=== PATIENT | female | born 1975 | race Caucasian/White ===

== ENCOUNTER → 2023-11-09 | Outpatient (CLI) | payer OTHER, SELFPAY ==
[2023-11-09 12:58] LABS: Erythrocyte Sedimentation Rate 60 mm/hr (0-30)
[2023-11-09 13:00] LABS: Basophil# 0.06 X10^3/uL; Basophil% 0.4 % (0-1); Eosinophil# 0.05 X10^3/uL; Eosinophils% 0.3 % (0-5); Hematocrit 40.7 % (37-47); Hemoglobin 11.9 g/dL (12.0-15.0); Lymphocyte % 7.5 % (19-41); Mean Corp Hgb Conc 29.2 g/dL (32-36); Mean Corpuscular Hgb 22.7 pg (27.0-32.0); Mean Corpuscular Volume 77.7 fL (81-99); Monocyte# 0.57 X10^3/uL; Monocyte% 3.6 % (0-10); NRBC Flagged by Analyzer 0 % (0-5); Neutrophil # 14.02 X10^3/uL (2.7-7.7); Neutrophil % 87.8 % (47-70); Platelet Count 497 K/mm3 (150-450); RBC Distribution Width CV 16.4 % (11.6-14.6); Red Blood Count 5.24 M/mm3 (4.2-5.4)
[2023-11-09 13:26] LABS: AST(SGOT) 15 U/L (15-37); Alanine Aminotransfer ALT/SGPT 21 U/L (13-56); Albumin, Serum 3.9 g/dL (3.2-5.0); Alkaline Phosphatase 69 U/L (45-117); Anion Gap 7 (5-15); BUN 11 mg/dL (7-18); BUN/Creat Ratio 16.6 RATIO (10-20); Calcium,Total 9.5 mg/dL (8.5-10.1); Chloride 105 mmol/L (98-107); Cholesterol 197 mg/dL (200); Creatinine, Serum 0.66 mg/dL (0.55-1.02); EST Glomerular Filtration Rate 100 mL/min (>60); Est Glom Filt Rate - Afr Amer 121 mL/min (>60); Estradiol < 11.0 pg/mL; Glucose 98 mg/dL (74-106); High Density Lipoprotein 92 mg/dL; Potassium 4.2 mmol/L (3.5-5.1); Protein, Total 7.9 g/dL (6.4-8.2); Sodium Level 140 mmol/L (136-145); Triglycerides 116 mg/dL; Very Low Density Lipoprotein 23 mg/dL (5-40)
[2023-11-09 13:43] LABS: Progesterone Level < 0.21 ng/mL (See Comment); Vitamin B12 626 pg/mL (211-911); Vitamin D,25 Hydroxy 32.4 ng/mL
[2023-11-09 14:08] LABS: Hemoglobin A1c 5.8 % (3.8-5.6)
[2023-11-10 04:07] LABS: DHEA Sulfate 7.7 ug/dL (41.2-243.7)
== END | disposition home or self-care (01) ==
LOC: LABSPEC 12:31
PROVIDERS: Referring Provider Nurse Practitioner Family; Visit Provider Nurse Practitioner Family
DX: F41.9 Anxiety disorder, unspecified (principal); M06.849 Other specified rheumatoid arthritis, unspecified hand; A69.20 Lyme disease, unspecified; B60.09 Other babesiosis; R53.82 Chronic fatigue, unspecified; G89.4 Chronic pain syndrome; E28.9 Ovarian dysfunction, unspecified; Z13.1 Encounter for screening for diabetes mellitus; Z13.6 Encounter for screening for cardiovascular disorders
CPT/HCPCS: 80053; 80061; 82306; 82607; 82627; 82670; 83036; 84144; 84403; 85025; 85652; 86140; 82626

== ENCOUNTER → 2025-05-02 | Outpatient (CLI) | payer OTHER, SELFPAY ==
[2025-05-02 18:05] LABS: Hematocrit 39.3 % (37-47); Hemoglobin 11.5 g/dL (12.0-15.0); Immature Granulocytes Count 0.080 X10^3/uL (0.0-0.0); Mean Corp Hgb Conc 29.3 g/dL (32-36); Mean Corpuscular Volume 72.9 fL (81-99); Mean Platelet Vol. 9.2 fl (6.2-12.0); NRBC Flagged by Analyzer 0 % (0-5); Platelet Count 538 K/mm3 (150-450); RBC Distribution Width CV 18.8 % (11.6-14.6); RBC Distribution Width SD 48.3 fl (35.1-43.9); Red Blood Count 5.39 M/mm3 (4.2-5.4); White Blood Count 10.7 K/mm3 (4.4-11.0)
[2025-05-02 19:03] LABS: AST(SGOT) 20 U/L (<=31); Alanine Aminotransfer ALT/SGPT 19 U/L (<=34); Albumin, Serum 4.4 g/dL (3.5-5.0); Alkaline Phosphatase 78 U/L (35-104); Anion Gap 15 (5-15); BUN 12 mg/dL (4-19); BUN/Creat Ratio 19.7 RATIO (10-20); CORTISOL PM 1.47 ug/dL (2.68-10.50); Calcium,Total 10.1 mg/dL (7.6-11.0); Carbon Dioxide 24.0 mmol/L (21.0-32.0); Chloride 101 mmol/L (98-108); Cholesterol 191 mg/dL (<=200); Globulin 4.4 g/dL (2.2-4.2); Glucose 97 mg/dL (70-99); Low Density Lipoprotein Calc. 86 mg/dL; Potassium 4.5 mmol/L (3.3-5.1); Triglycerides 147 mg/dL; Very Low Density Lipoprotein 29 mg/dL (5-40); cholesterol:hdl ratio screen 2.52
[2025-05-02 19:16] LABS: Vitamin D,25 Hydroxy 46.6 ng/mL (30-100)
--- OUTSIDE RECORDS SUMMARY | 2025-05-02 23:17 | XMS RPT_ITS | CCD ---
Author Organization [facility] Care Team Providers Care Glass Block Installer Name Role Phone Juli Beach Unavailable Sheeba Rojas Unavailable Sadie Santana Unavailable Unavailable JULI BEACH Primary Care Unavailable ALMAZ GREGORIO Attending UnavailJULI Rosas Primary Care Unavailable ADRIANA ALEXANDER Attending Unavailable Juli Beach Primary Care Provider Sheeba Rojas Unavailable [phone] Sadie Santana Unavailable Unavailable Sadie Santana Unavailable Unavailable Cheryle BUI, Terri Leung Referring Unavailsae Lobato NP, Terri Leung Attending UnavailSantos Perez DO Unavailable Unavailable Santos Malloy Attending Unavailable Solomon Mcgee Referring Unavailable Santos Malloy Attending Unavailable Solomon Mcgee Referring Unavailable Santos Malloy Attending Unavailable Solomon Mcgee Referring Unavailable Santos Malloy Attending Unavailable Solomon Mcgee Referring Unavailable Santos Malloy Attending Unavailable Jose Alfredo Crouch Attending Unavailable Santos Malloy Referring Unavailable CHERYLE, TERRI Primary Care Unavailable SOLO ABEBE Referring Unavailable SOLO ABEBE Attending Unavailable SOLO ABEBE Attending Unavailable LILLY LOBATOISTA Primary Care Unavailable SOLO ABEBE Referring Unavailable SHEEBA ROJAS Referring Unavailabl SHEEBA Arcos Attending Unavailsae LOBATO TERRI Primary Care Unavailable Allergies Allergy Classification Reported Allergen(s) Allergy Type Date of Onset Reaction(s) Facility (8 sources) HYDROmorphone; Translations: [HYDROMORPHONE] Drug Allergy 07-31-2015 [facility] Medications Current Medications Medication Drug Class(es) Dates Sig (Normalized) Sig (Original) amoxicillin 875 mg oral tablet (5 sources) Penicillin-class Antibacterial Start: 10-06-2018 take 1 tablet by mouth twice daily amoxicillin (AMOXIL) 875 MG tablet Take 875 mg by mouth 2 (two) times a day . 1 10/06/2018 Active ascorbic acid 1000 mg oral tablet (6 sources) take 1 tablet by mouth once daily ascorbic acid, vitamin C, (vitamin C) 1000 MG tablet Take 1,000 mg by mouth daily. 0 Active ASPIRIN/ACETAMINOP HEN/CAFFEINE (EXCEDRIN EXTRA STRENGTH ORAL) (6 sources) ASPIRIN/ACETAMIN O PHEN/CAFFEINE (EXCEDRIN EXTRA STRENGTH ORAL) Take by mouth every 8 (eight) hours as needed. 0 Active ASPIRIN/ACETAMIN OPHEN/CAFFEINE (EXCEDRIN EXTRA STRENGTH ORAL) Take by mouth every 8 (eight) hours as needed. Active cholecalciferol 5000 unt oral tablet (6 sources) Vitamin D cholecalciferol, vitamin D3, (VITAMIN D3) 5,000 unit Tab tablet Take by mouth daily. 0 Active coconut oil (6 sources) take 3000 mg by mouth once daily COCONUT OIL ORAL Indications: Supplement Take 3,000 mg by mouth daily Reasons: Supplement. 0 Active take 3000 mg by mouth once daily COCONUT OIL ORAL Indications: Supplement Take 3,000 mg by mouth daily Reasons: Supplement. Active diazePAM 10 mg oral tablet (6 sources) Benzodiazepine take 1 tablet by mouth twice daily as needed for anxiety diazePAM (VALIUM) 10 MG tablet Take 10 mg by mouth 2 (two) times a day as needed for anxiety. 0 Active escitalopram 10 mg oral tablet (6 sources) Serotonin Reuptake Inhibitor Start: 2014 escitalopram oxalate (LEXAPRO) 10 MG tablet Indications: anxiety with depression 10 mg nightly ReasonsAnxiety with Depression 0 06/20/2015 Active fluticasone propionate 0.05 mg/actuat metered dose nasal spray (3 sources) Corticosteroid Start: 2018 End: 2019 take 2 spray(s) nasal route once daily fluticasone (FLONASE) 50 mcg/actuation nasal spray Instill 2 (two) sprays into each nostril daily . 16 g 0 10/22/2018 Active hydroxychloroquine sulfate 200 mg oral tablet (6 sources) Antirheumatic Agent hydroxychlor oquine (PLAQUENIL) 200 mg tablet Take by mouth 2 (two) times a day. 0 Active meloxicam 15 mg oral tablet (1 source) Nonsteroidal Anti-inflammatory Drug Start: 2023 take 1 tablet by mouth once daily meloxicam 15 mg tablet take 1 tablet by oral route every day 15 MG - Active oseltamivir 75 mg oral capsule (3 sources) Neuraminidase Inhibitor Start: 2018 End: 2018 take 1 capsule by mouth twice daily oseltamivir (TAMIFLU) 75 MG capsule Indications: Influenza A Take 1 (one) capsule (75 mg total) by mouth 2 (two) times a day for 5 days . 10 capsule 0 10/20/2018 10/25/2018 Active predniSONE 2 mg delayed release oral tablet (6 sources) Corticosteroid take 3 mg by mouth twice daily in the morning, then take 2 mg by mouth in the evening, then take 2 mg by mouth once daily PREDNISONE ORAL Indications: 2mg daily Take by mouth 2 (two) times a day Takes 3 mg in am, 2 mg in pm Reasons: 2mg daily. 0 Active take 3 mg by mouth t wice daily in the morning, then take 2 mg by mouth in the evening, then take 2 mg by mouth once daily PREDNISONE ORAL Indications: 2mg daily T janet by mouth 2 (two) times a day Takes 3 mg in am, 2 mg in pm Reasons: 2mg daily. 0 Active take 3 mg by mouth t wice daily in the morning, then take 2 mg by mouth in the evening PREDNISONE ORAL Take by mouth 2 (two) ti mes a day Takes 3 mg in am, 2 mg in pm . Active rizatriptan 10 mg disintegrating oral tablet (6 sources) Serotonin-1b and Serotonin-1d Receptor Agonist Start: 06-05-2015 rizatriptan (MAXALT-INSTRUMENT MAN) 10 MG disintegrating tablet as needed for migraine 0 06/05/2015 Active UNABLE TO FIND (6 sources) UNABLE TO FIND M ed Name: bio fibrin 3 capsules daily . 0 Active UNABLE TO FIND M ed Name: bio fibrin 3 capsules daily . Active Completed/Discontinued Medications Medication Drug Class(es) Dates Sig (Normalized) Sig (Original) Sodium Chloride (1 source) Start: 10-22-2018 End: 10-22-2018 sodium chloride (PF) (NS) flush 5 mL Problems Active Problems Problem Classification Problem Date Documented Da te Episodic/Chronic Influenza (3 sources) Influenza due to Influenza A virus; Translations: [Influenza due to other identified influenza virus with other respiratory manifestations] Onset: 10-20-2018 Episodic Malaise and fatigue (1 source) Chronic fatigue, unspecified; Translations: [Chronic fatigue, unspecified] Onset: 11-09-2023 Chronic Nonspecific chest pain (4 sources) Chest wall pain; Translations: [Chest pain, unspecified] Onset: 10-22-2018 Episodic Osteoarthritis (2 sources) Unilateral primary osteoarthritis, right knee Onset: 08-04-2024 08-04-2024 Chronic Other and unspecified benign neoplasm (3 sources) Intraductal papilloma of right breast; Translations: [Intraductal papilloma of right breast] Onset: 08-23-2015 08-23-2015 Other circulatory disease (2 sources) Elevated blood pressure; Translations: [Elevated blood pressure reading] Episodic Other circulatory disease (2 sources) Elevated blood-pressure reading, without diagnosis of hypertension; Translations: [Elevated blood-pressure reading, without diagnosis of hypertension] Onset: 10-22-2018 Episodic Other infections; including parasitic (1 source) Lyme disease, unspecified; Translations: [Lyme disease, unspecified] Onset: 11-09-2023 Episodic Other nervous system disorders (1 source) Chronic pain syndrome; Translations: [Chronic pain syndrome] Onset: 11-09-2023 Chronic Other non-traumatic joint disorders (2 sources) Pain in right knee Episodic Other screening for suspected conditions (not mental disorders or infectious disease) (3 sources) Mammographic mass of right breast; Translations: [Mass of right breast on mammogram] Onset: 07-05-2015 08-02-2015 Residual codes; unclassified (1 source) Influenza-like symptoms; Translations: [Influenza-like symptoms] Episodic Residual codes; unclassified (2 sources) Other general symptoms and signs; Translations: [Other general symptoms and signs] Onset: 10-20-2018 Episodic Rheumatoid arthritis and related disease (1 source) Other specified rheumatoid arthritis, unspecified hand; Translations: [Other specified rheumatoid arthritis, unspecified hand] Onset: 11-09-2023 Chronic Unclassified (5 sources) Breast neoplasm screening status; Translations: [Encounter for screening for diabetes mellitus] Onset: 11-09-2023 Episodic Unclassified (3 sources) Unspecified lump in the right breast, unspecified quadrant; Translations: [Mass of right breast on mammogram] Onset: 07-05-2015 08-02-2015 Unclassified (2 sources) Patient encounter status; Translations: [Screening breast examination] Unclassified (1 source) Other babesiosis; 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] Onset: 11-09-2023 Past or Other Problems Problem Classification Problem Date Documented Da te Episodic/Chronic Benign neoplasm of uterus (6 sources) Uterine leiomyoma; Translations: [Uterine fibroid] Onset: 09-23-2016 09-23-2016 Episodic Nonmalignant breast conditions (6 sources) Bloody nipple discharge; Translations: [Bloody discharge from right nipple] Onset: 07-05-2015 Resolved: 08-23-2015 08-23-2015 Episodic Other and unspecified benign neoplasm (3 sources) Benign neoplasm of right breast; Translations: [Intraductal papilloma of right breast] Onset: 08-23-2015 08-23-2015 Episodic Unclassified (6 sources) History of total hysterectomy with bilateral salpingo-oophorecto my; Translations: [S/P KEENA-BSO (total abdominal hysterectomy and bilateral salpingo-oophorecto my)] Onset: 09-23-2016 09-23-2016 Episodic Results Test Name Value Interpretation Reference Range Facility MM SCREENING DEANGELO BILATERALo n 04-20-2025 MM SCREENING DEANGELO BILATERAL EXAMINATION: BILATERAL DIGITAL SCREENING MAMMOGRAM WITH TOMOSYNTHESIS INDICATION: Annual screening exam. COMPARISON: Studies dating back to 2014 TECHNIQUE: Standard mammographic views, 2D and 3D. Computer-aided detection was utilized in the interpretation of this exam. FINDINGS: The breasts are heterogeneously dense, which may obscure small masses. Stable postsurgical changes in the anterior right breast from a prior benign surgical excision. No suspicious masses, calcifications, or other abnormalities in either breast. No significant interval change. IMPRESSION: No mammographic evidence of malignancy. BIRADS: BIRADS - CATEGORY 2 Benign, no evidence of malignancy. Normal interval follow-up is recommended in 12 months. OVERALL ASSESSMENT - BENIGN A letter of notification will be sent to the patient regarding the results. [facility], along with the [employer] and the [employer] recommend annual screening mammograms for women age 40 and older. Workstation ID: [id number] Dictated by: JERRY KEBEDE on ThuApr 20, 2025 9:40:30 AM EDT Transcribed by: JERRY KEBEDE on ThuApr 20, 2025 9:40:30 AM EDT Finalized by: JERRY KEBEDE on ThuApr 20, 2025 9:40:30 AM EDT Normal [facility] BMP FASTINGon 03-28-2025 Anion gap [Moles/Vol] 11 mmol/L Normal [facility] Comment on above: Performed By: #### B MPF #### Testing performed at [address] [address] Calcium [Mass/Vol] 9.8 mg/dL Normal 8.4-10.2 [facility] Comment on above: Performed By: #### B MPF #### Testing performed at [address] [address] Chloride [Moles/Vol] 101 mmol/L Normal 98-107 [facility] Comment on above: Result Comment: Allen smith note: Triglyceride levels of 600mg/dL or higher may positively bias chloride results by approximately 2.1 mmol Performed By: #### B MPF #### Testing performed at [address] [address] CO2 [Moles/Vol] 27 mmol/L Normal 22-30 [facility] Comment on above: Performed By: #### B MPF #### Testing performed at [address] [address] Creatinine [Mass/Vol] 0.58 mg/dL Low 0.70-1.20 [facility] Comment on above: Performed By: #### B MPF #### Testing performed at [address] [address] GFR Information Average GFR for 50-5 9 years old = 93. Normal [facility] Comment on above: Result Comment: Mottler Operator rodrick Kidney disease, GFR = <60. Kidney failure, GFR = <15. The GFR estimate is not adjusted for extreme body surface area or acute process, nor has it been validated for women or ethnic groups other than and . MDRD Equation Performed By: #### B MPF #### Testing performed at [address] [address] GFR/1.73 sq M.predicted MDRD (S/P/Bld) [Vol rate/Area] 117 mL/min/{1.73_m2} Normal [facility] Comment on above: Performed By: #### B MPF #### Testing performed at [address] [address] Glucose [Mass/Vol] 117 mg/dL High 70-100 [facility] Comment on above: Result Comment: NORMAL <100 mg/dL PREDIABETES 101-126 mg/dL DIABETES 126 mg/dL or higher Performed By: #### B MPF #### Testing performed at [address] [address] Potassium [Moles/Vol] 4.1 mmol/L Normal 3.5-5.1 [facility] Comment on above: Performed By: #### B MPF #### Testing performed at [address] [address] Sodium [Moles/Vol] 139 mmol/L Normal 137-145 [facility] Comment on above: Performed By: #### B MPF #### Testing performed at [address] [address] Urea nitrogen [Mass/Vol] 12 mg/dL Normal 7-20 [facility] Comment on above: Performed By: #### B MPF #### Testing performed at [address] [address] DHEA Sulfateon 11-10-2023 DHEA SULFATE 7.7 ug/dL Low 41.2-243.7 [facility] Comment on above: Order Comment: N Result Comment: Perf ormed at: - [facility] [address] [id number] Cut To Length Operator: Anthony Bragg PhD, Phone: [phone] Performed By: #### L 501.9985, L100.0100, L503.0105, L3300.1500, L506.1000, L501.6710, L500.4050, L101.9900, L500.4100, L509.4001, L3300.1750, L509.3000 #### [facility] [address] [place], [address] Absolute lymphocyte countOrd ered By: Terri Lobato on 11-09-2023 Lymphocytes Auto (Unsp spec) [#/Vol] 1.20 10*3/uL 0.83-4.51 [facility] Automated lymphocyte count a s percentage of total leukocytesOrdered By: Terri Joseyolette on 11-09-2023 Lymphocytes/100 WBC Auto (Unsp spec) 7.5 % 19-41 [facility] Basophil percentageOrdered B y: Terri Lobato on 11-09-2023 Bilirubin [Mass/Vol] 0.30 mg/dL 0.20-1.00 [facility] Comment on above: For patients on eltr ombopag therapy, use of Dimension [place] TBIL is not recommended. Chloride [Moles/Vol] 105 mmol/L 98-107 [facility] Cholesterol [Mass/Vol] 197 mg/dL <200 [facility] Comment on above: <200 mg/dL Desirable 200-240 mg/dL Borderline >240 mg/dL High Risk Glucose [Mass/Vol] 98 mg/dL 74-[address] [facility] Neutrophils (Bld) [#/Vol] 14.0 10*3/uL 2.0-7.7 [facility] Potassium [Moles/Vol] 4.2 mmol/L 3.5-5.1 [facility] Protein [Mass/Vol] 7.9 g/dL 6.4-8.[address] [facility] Sodium [Moles/Vol] 140 mmol/L 136-[address] [facility] Testosterone [Mass/Vol] ng/dL [facility] Comment on above: CENTRAL 90% REFERENC E RANGES MALE AGE <50 197.44 - 669.58 ng/dL MALE AGE > or = 50 187.72 - 684.19 ng/dL FEMALE AGE <50 8.38 - 35.01 ng/dL FEMALE AGE > or = 50 <7.00 - 35.92 ng/dL Effective as of 03/12/21 Triglyceride [Mass/Vol] 116 mg/dL <199 [facility] Comment on above: The drugs N-Acetylcy steine and Metamizole may falsely depress this assay.Serum Triglycerides Reference Interval Normal <150 mg/dL Borderline high 150 - 199 mg/dL High 200 - 499 mg/dL Very High > or = 500 mg/dL CBC W/Diff, Automatedon 10-16 Absolute Lymph 1.20 X10 3/uL Normal 0.83-4.51 [facility] Comment on above: Performed By: #### L 501.9985, L100.0100, L503.0105, L3300.1500, L506.1000, L501.6710, L500.4050, L101.9900, L500.4100, L509.4001, L3300.1750, L509.3000 #### [facility] [address] [place], [address] Absolute Neut 14.0 X10 3/uL High 2.0-7.7 [facility] Comment on above: Performed By: #### L 501.9985, L100.0100, L503.0105, L3300.1500, L506.1000, L501.6710, L500.4050, L101.9900, L500.4100, L509.4001, L3300.1750, L509.3000 #### [facility] [address] [place], [address] IG% 0.400 Normal 0.0-0.9 [facility] Comment on above: Result Comment: IG% - Immature Granulocytes (promyelocytes, myelocytes and metamyelocytes) > 1% indicates that a LEFT SHIFT is Present. Performed By: #### L 501.9985, L100.0100, L503.0105, L3300.1500, L506.1000, L501.6710, L500.4050, L101.9900, L500.4100, L509.4001, L3300.1750, L509.3000 #### [facility] [address] [place], [address] Lymphocytes/100 WBC (Bld) 7.5 % Low 19-41 [facility] Comment on above: Performed By: #### L 501.9985, L100.0100, L503.0105, L3300.1500, L506.1000, L501.6710, L500.4050, L101.9900, L500.4100, L509.4001, L3300.1750, L509.3000 #### [facility] [address] [place], [address] Nucleated RBC (Bld) [#/Vol] 0 10*3/uL Normal 0-5 [facility] Comment on above: Performed By: #### L 501.9985, L100.0100, L503.0105, L3300.1500, L506.1000, L501.6710, L500.4050, L101.9900, L500.4100, L509.4001, L3300.1750, L509.3000 #### [facility] [address] [place], [address] RDW SD 46.0 fl High 35.1-43.9 [facility] Comment on above: Performed By: #### L 501.9985, L100.0100, L503.0105, L3300.1500, L506.1000, L501.6710, L500.4050, L101.9900, L500.4100, L509.4001, L3300.1750, L509.3000 #### [facility] [address] [place], [address] CBC W/Diff, AutomatedOrdered By: Terri Lobato on 11-09-2023 Basophils/100 WBC (Bld) 0.4 % 0-1 [facility] Comment on above: Performed By: #### L 501.9985, L100.0100, L503.0105, L3300.1500, L506.1000, L501.6710, L500.4050, L101.9900, L500.4100, L509.4001, L3300.1750, L509.3000 #### [facility] [address] [place], [place], [phone] (421) Eosinophils/100 WBC (Bld) 0.3 % 0-5 [facility] Comment on above: Performed By: #### L 501.9985, L100.0100, L503.0105, L3300.1500, L506.1000, L501.6710, L500.4050, L101.9900, L500.4100, L509.4001, L3300.1750, L509.3000 #### [facility] [address] [place], [address] (061) Erythrocyte distribution width (RBC) [Ratio] 16.4 % 11.6-14.6 [facility] Comment on above: Performed By: #### L 501.9985, L100.0100, L503.0105, L3300.1500, L506.1000, L501.6710, L500.4050, L101.9900, L500.4100, L509.4001, L3300.1750, L509.3000 #### [facility] [address] [place], [place], [id number] Hematocrit (Bld) [Volume fraction] 40.7 % 37-47 [facility] Comment on above: Performed By: #### L 501.9985, L100.0100, L503.0105, L3300.1500, L506.1000, L501.6710, L500.4050, L101.9900, L500.4100, L509.4001, L3300.1750, L509.3000 #### [facility] [address] [place], [address] (627) Hemoglobin (Bld) [Mass/Vol] 11.9 g/dL 12.0-15.0 [facility] Comment on above: Performed By: #### L 501.9985, L100.0100, L503.0105, L3300.1500, L506.1000, L501.6710, L500.4050, L101.9900, L500.4100, L509.4001, L3300.1750, L509.3000 #### [facility] [address] [place], [address] MCH (RBC) [Entitic mass] 22.7 pg 27.0-32.0 [facility] Comment on above: Performed By: #### L 501.9985, L100.0100, L503.0105, L3300.1500, L506.1000, L501.6710, L500.4050, L101.9900, L500.4100, L509.4001, L3300.1750, L509.3000 #### [facility] [address] [place], [address] MCHC (RBC) [Mass/Vol] 29.2 g/dL 32-36 [facility] Comment on above: Performed By: #### L 501.9985, L100.0100, L503.0105, L3300.1500, L506.1000, L501.6710, L500.4050, L101.9900, L500.4100, L509.4001, L3300.1750, L509.3000 #### [facility] [address] [place], [address] MCV (RBC) [Entitic vol] 77.7 fL 81-99 [facility] Comment on above: Performed By: #### L 501.9985, L100.0100, L503.0105, L3300.1500, L506.1000, L501.6710, L500.4050, L101.9900, L500.4100, L509.4001, L3300.1750, L509.3000 #### [facility] [address] [place], [address] Monocytes/100 WBC (Bld) 3.6 % 0-10 [facility] Comment on above: Performed By: #### L 501.9985, L100.0100, L503.0105, L3300.1500, L506.1000, L501.6710, L500.4050, L101.9900, L500.4100, L509.4001, L3300.1750, L509.3000 #### [facility] [address] [place], [address] Neutrophils/100 WBC (Bld) 87.8 % 47-70 [facility] Comment on above: Performed By: #### L 501.9985, L100.0100, L503.0105, L3300.1500, L506.1000, L501.6710, L500.4050, L101.9900, L500.4100, L509.4001, L3300.1750, L509.3000 #### [facility] [address] [place], [address] Platelet mean volume (Bld) [Entitic vol] 9.0 fL 6.2-12.0 [facility] Comment on above: Performed By: #### L 501.9985, L100.0100, L503.0105, L3300.1500, L506.1000, L501.6710, L500.4050, L101.9900, L500.4100, L509.4001, L3300.1750, L509.3000 #### [facility] [address] [place], [place], [id number] (019) Platelets (Bld) [#/Vol] 497 10*3/uL 150-450 [facility] Comment on above: Performed By: #### L 501.9985, L100.0100, L503.0105, L3300.1500, L506.1000, L501.6710, L500.4050, L101.9900, L500.4100, L509.4001, L3300.1750, L509.3000 #### [facility] [address] [place], [place], [phone] (561) RBC (Bld) [#/Vol] 5.24 10*6/uL 4.2-5.4 [facility] Comment on above: Performed By: #### L 501.9985, L100.0100, L503.0105, L3300.1500, L506.1000, L501.6710, L500.4050, L101.9900, L500.4100, L509.4001, L3300.1750, L509.3000 #### [facility] [address] [place], [place], [phone] WBC (Bld) [#/Vol] 16.0 10*3/uL 4.4-11.0 [facility] Comment on above: Performed By: #### L 501.9985, L100.0100, L503.0105, L3300.1500, L506.1000, L501.6710, L500.4050, L101.9900, L500.4100, L509.4001, L3300.1750, L509.3000 #### [facility] [address] [place], [address] CRPon 11-09-2023 C-REACTIVE PROT 36.20 mg/L High 0.0-3.0 [facility] Comment on above: Result Comment: C-Re active Protein (CRP) provides useful information for the diagnosis, therapy and monitoring of inflammatory processes and associated diseases. For the evaluation of Relative Risk for Cardiovascular Disease, a High Sensitivity CRP (HSCRP) should be ordered. Performed By: #### L 501.9985, L100.0100, L503.0105, L3300.1500, L506.1000, L501.6710, L500.4050, L101.9900, L500.4100, L509.4001, L3300.1750, L509.3000 #### [facility] [address] [place], [address] Comprehensive Metabolic Prof ilon 11-09-2023 Albumin [Mass/Vol] 3.9 g/dL Normal 3.2-5.[address] [facility] Comment on above: Performed By: #### L 501.9985, L100.0100, L503.0105, L3300.1500, L506.1000, L501.6710, L500.4050, L101.9900, L500.4100, L509.4001, L3300.1750, L509.3000 #### [facility] [address] [place], [place], [id number] Albumin/Globulin [Mass ratio] 1.0 {ratio} Normal 0.9-2.4 [facility] Comment on above: Performed By: #### L 501.9985, L100.0100, L503.0105, L3300.1500, L506.1000, L501.6710, L500.4050, L101.9900, L500.4100, L509.4001, L3300.1750, L509.3000 #### [facility] [address] [place], [address] ALK P 69 U/L Normal 45-117 [facility] Comment on above: Performed By: #### L 501.9985, L100.0100, L503.0105, L3300.1500, L506.1000, L501.6710, L500.4050, L101.9900, L500.4100, L509.4001, L3300.1750, L509.3000 #### [facility] [address] [place], [address] ALT [Catalytic activity/Vol] 21 U/L Normal 13-56 [facility] Comment on above: Performed By: #### L 501.9985, L100.0100, L503.0105, L3300.1500, L506.1000, L501.6710, L500.4050, L101.9900, L500.4100, L509.4001, L3300.1750, L509.3000 #### [facility] [facility] [address] [place], [address] AST [Catalytic activity/Vol] 15 U/L Normal 15-37 [facility] Comment on above: Performed By: #### L 501.9985, L100.0100, L503.0105, L3300.1500, L506.1000, L501.6710, L500.4050, L101.9900, L500.4100, L509.4001, L3300.1750, L509.3000 #### [facility] [address] [place], [place], [phone]) Bilirubin [Mass/Vol] 0.30 mg/dL Normal 0.20-1.00 [facility] Comment on above: Result Comment: For patients on eltrombopag therapy, use of Dimension [place] TBIL is not recommended. Performed By: #### L 501.9985, L100.0100, L503.0105, L3300.1500, L506.1000, L501.6710, L500.4050, L101.9900, L500.4100, L509.4001, L3300.1750, L509.3000 #### [facility] [address] [place], [place], [phone] ([phone] BUN/CRE 16.6 RATIO Normal 10-20 [facility] Comment on above: Performed By: #### L 501.9985, L100.0100, L503.0105, L3300.1500, L506.1000, L501.6710, L500.4050, L101.9900, L500.4100, L509.4001, L3300.1750, L509.3000 #### [facility] [address] [place], [place], [phone] (164) CA,Total 9.5 mg/dL Normal 8.5-10.1 [facility] Comment on above: Performed By: #### L 501.9985, L100.0100, L503.0105, L3300.1500, L506.1000, L501.6710, L500.4050, L101.9900, L500.4100, L509.4001, L3300.1750, L509.3000 #### [facility] [address] [place], [address] Chloride [Moles/Vol] 105 mmol/L Normal 98-107 [facility] Comment on above: Performed By: #### L 501.9985, L100.0100, L503.0105, L3300.1500, L506.1000, L501.6710, L500.4050, L101.9900, L500.4100, L509.4001, L3300.1750, L509.3000 #### [facility] [address] [place], [address] CO2 [Moles/Vol] 28.0 mmol/L Normal 21.0-32.0 [facility] Comment on above: Performed By: #### L 501.9985, L100.0100, L503.0105, L3300.1500, L506.1000, L501.6710, L500.4050, L101.9900, L500.4100, L509.4001, L3300.1750, L509.3000 #### [facility] [address] [place], [address] Creatinine [Mass/Vol] 0.66 mg/dL Normal 0.55-1.02 [facility] Comment on above: Result Comment: The validity of the calculated GFR GFRAA in patients over 70 years has not been determined. Clinical correlation is essential. Performed By: #### L 501.9985, L100.0100, L503.0105, L3300.1500, L506.1000, L501.6710, L500.4050, L101.9900, L500.4100, L509.4001, L3300.1750, L509.3000 #### [facility] [address] [place], [address] EST GFR - AA 121 mL/min Normal >60 [facility] Comment on above: Result Comment: Afri can [place] GFR Calc Performed By: #### L 501.9985, L100.0100, L503.0105, L3300.1500, L506.1000, L501.6710, L500.4050, L101.9900, L500.4100, L509.4001, L3300.1750, L509.3000 #### [facility] [address] [place], [place], [phone] (505) GAP 7 Normal 5-15 [facility] Comment on above: Performed By: #### L 501.9985, L100.0100, L503.0105, L3300.1500, L506.1000, L501.6710, L500.4050, L101.9900, L500.4100, L509.4001, L3300.1750, L509.3000 #### [facility] [address] [place], [address] GFR/1.73 sq M.predicted among non-blacks MDRD (S/P/Bld) [Vol rate/Area] 100 mL/min/{1.73_m2} Normal >60 [facility] Comment on above: Result Comment: Non- GFR Calc Performed By: #### L 501.9985, L100.0100, L503.0105, L3300.1500, L506.1000, L501.6710, L500.4050, L101.9900, L500.4100, L509.4001, L3300.1750, L509.3000 #### [facility] [address] [place], [place], [phone] Globulin (S) [Mass/Vol] 4.0 g/dL Normal 2.2-4.2 [facility] Comment on above: Performed By: #### L 501.9985, L100.0100, L503.0105, L3300.1500, L506.1000, L501.6710, L500.4050, L101.9900, L500.4100, L509.4001, L3300.1750, L509.3000 #### [facility] [address] [place], [address] Glucose [Mass/Vol] 98 mg/dL Normal 74-[address] [facility] Comment on above: Performed By: #### L 501.9985, L100.0100, L503.0105, L3300.1500, L506.1000, L501.6710, L500.4050, L101.9900, L500.4100, L509.4001, L3300.1750, L509.3000 #### [facility] [address] [place], [address] Potassium [Moles/Vol] 4.2 mmol/L Normal 3.5-5.1 [facility] Comment on above: Performed By: #### L 501.9985, L100.0100, L503.0105, L3300.1500, L506.1000, L501.6710, L500.4050, L101.9900, L500.4100, L509.4001, L3300.1750, L509.3000 #### [facility] [address] [place], [address] Sodium [Moles/Vol] 140 mmol/L Normal 136-[address] [facility] Comment on above: Performed By: #### L 501.9985, L100.0100, L503.0105, L3300.1500, L506.1000, L501.6710, L500.4050, L101.9900, L500.4100, L509.4001, L3300.1750, L509.3000 #### [facility] [address] [place], [address] T PROT 7.9 g/dL Normal 6.4-8.2 [facility] Comment on above: Performed By: #### L 501.9985, L100.0100, L503.0105, L3300.1500, L506.1000, L501.6710, L500.4050, L101.9900, L500.4100, L509.4001, L3300.1750, L509.3000 #### [facility] [address] [place], [address] Urea nitrogen [Mass/Vol] 11 mg/dL Normal 7-18 [facility] Comment on above: Performed By: #### L 501.9985, L100.0100, L503.0105, L3300.1500, L506.1000, L501.6710, L500.4050, L101.9900, L500.4100, L509.4001, L3300.1750, L509.3000 #### [facility] [address] [place], [address] Erythrocyte Sed Rateon 11-08 SED RATE 60 mm/hr High 0-30 [facility] Comment on above: Performed By: #### L 501.9985, L100.0100, L503.0105, L3300.1500, L506.1000, L501.6710, L500.4050, L101.9900, L500.4100, L509.4001, L3300.1750, L509.3000 #### [facility] [address] [place], [address] Erythrocyte distribution wid th standard deviationOrdered By: Terri Lobato on 11-09-2023 Erythrocyte distribution width (RBC) [Entitic vol] 46.0 fL 35.1-43.[address] [facility] Erythrocyte sedimentation ra teOrdered By: Terri Lobato on 11-09-2023 ESR (Bld) [Velocity] 60 mm/h 0-30 [facility] Estradiolon 11-09-2023 ESTRADIOL < 11.0 Normal [facility] Comment on above: Result Comment: NORM AL REFERENCE RANGES FEMALE FOLLICULAR 21.4 - 164.8 pg/mL MID-CYCLE PEAK 49.9 - 367.2 pg/mL LUTEAL 40.2 - 259.0 pg/mL POST-MENOPAUSAL ON MHT <11.0 - 462.1 pg/mL NOT ON MHT <11.0 - 58.3 pg/mL MALE <11.0 - 52.5 pg/mL NOTE: [employer] HAS CONFIRMED THE DRUG FULVETRANT (FASLODEX) MAY CAUSE FALSELY ELEVATED ESTRADIOL RESULTS WHEN USING THIS TEST METHOD. IF PATIENT IS TAKING FULVESTRANT AN ALTERNATIVE METHOD SHOULD BE USED TO DETERMINE ESTRADIOL CONCENTRATION. Performed By: #### L 501.9985, L100.0100, L503.0105, L3300.1500, L506.1000, L501.6710, L500.4050, L101.9900, L500.4100, L509.4001, L3300.1750, L509.3000 #### [facility] [address] [place], [place], [id number] Hemoglobin A1con 11-09-2023 HbA1c (Bld) [Mass fraction] 5.8 % High 3.8-5.6 [facility] Comment on above: Result Comment: Norm al < 5.7 % Prediabetic 5.7 - 6.4 % Diabetic >or= 6.5 % Please note range changes. Performed By: #### L 501.9985, L100.0100, L503.0105, L3300.1500, L506.1000, L501.6710, L500.4050, L101.9900, L500.4100, L509.4001, L3300.1750, L509.3000 #### [facility] [address] [place], [place], [id number] Immature granulocytes/100 WB C Auto (Bld)Ordered By: Terri Lobato on 11-09-2023 Immature granulocytes/100 WBC (Bld) 0.400 % 0.0-0.9 [facility] Comment on above: IG% - Immature Granu locytes (promyelocytes, myelocytes and metamyelocytes) > 1% indicates that a LEFT SHIFT is Present. Laboratory - Chemistry and C hemistry - challengeOrdered By: Terri Lobato on 11-09-2023 Albumin/Globulin [Mass ratio] 1.0 {ratio} 0.9-2.4 [facility] ALP [Catalytic activity/Vol] 69 U/L 45-117 [facility] ALT [Catalytic activity/Vol] 21 U/L 13-56 [facility] Cholesterol in HDL [Mass/Vol] 92 mg/dL >40 [facility] Comment on above: The drugs N-Acetylcy steine and Metamizole may falsely depress this assay. Reference Range HDL <40 mg/dL Low HDL Cholesterol HDL >or= 60 mg/dL High HDL Cholesterol Cholesterol in LDL [Mass/Vol] 82 mg/dL 0-130 [facility] CO2 [Moles/Vol] 28.0 mmol/L 21.0-32.0 [facility] Cobalamin (Vitamin B12) [Mass/Vol] 626 pg/mL 211-911 [facility] Globulin (S) [Mass/Vol] 4.0 g/dL 2.2-4.2 [facility] Urea nitrogen/Creatinine [Mass ratio] 16.6 mg/mg 10-20 [facility] - Hematology and Cell countsOrdered By: Terri Lobato on 11-09-2023 Nucleated RBC/100 WBC (Bld) [Ratio] 0 % 0-5 [facility] Lipid Profileon 11-09-2023 Cholesterol [Mass/Vol] 197 mg/dL Normal 200 [facility] Comment on above: Result Comment: <200 mg/dL Desirable 200-240 mg/dL Borderline >240 mg/dL High Risk Performed By: #### L 501.9985, L100.0100, L503.0105, L3300.1500, L506.1000, L501.6710, L500.4050, L101.9900, L500.4100, L509.4001, L3300.1750, L509.3000 #### [facility] [address] [place], [address] Cholesterol in HDL [Mass/Vol] 92 mg/dL Normal [facility] Comment on above: Result Comment: The drugs N-Acetylcysteine and Metamizole may falsely depress this assay. Reference Range HDL <40 mg/dL Low HDL Cholesterol HDL >or= 60 mg/dL High HDL Cholesterol Performed By: #### L 501.9985, L100.0100, L503.0105, L3300.1500, L506.1000, L501.6710, L500.4050, L101.9900, L500.4100, L509.4001, L3300.1750, L509.3000 #### [facility] [address] [place], [address] Cholesterol in LDL [Mass/Vol] 82 mg/dL Normal 0-130 [facility] Comment on above: Performed By: #### L 501.9985, L100.0100, L503.0105, L3300.1500, L506.1000, L501.6710, L500.4050, L101.9900, L500.4100, L509.4001, L3300.1750, L509.3000 #### [facility] [address] [place], [address] Cholesterol in VLDL [Mass/Vol] 23 mg/dL Normal 5-40 [facility] Comment on above: Performed By: #### L 501.9985, L100.0100, L503.0105, L3300.1500, L506.1000, L501.6710, L500.4050, L101.9900, L500.4100, L509.4001, L3300.1750, L509.3000 #### [facility] [address] [place], [address] Triglyceride [Mass/Vol] 116 mg/dL Normal [facility] Comment on above: Result Comment: The drugs N-Acetylcysteine and Metamizole may falsely depress this assay. Serum Triglycerides Reference Interval Normal <150 mg/dL Borderline high 150 - 199 mg/dL High 200 - 499 mg/dL Very High > or = 500 mg/dL Performed By: #### L 501.9985, L100.0100, L503.0105, L3300.1500, L506.1000, L501.6710, L500.4050, L101.9900, L500.4100, L509.4001, L3300.1750, L509.3000 #### [facility] [address] [place], [address] No Panel InformationOrdered By: Terri Lobato on 11-09-2023 C-Reactive Protein Extended Range 36.20 mg/L 0.0-3.0 [facility] Comment on above: C-Reactive Protein ( CRP) provides useful information for thediagnosis, therapy and monitoring of inflammatory processesand associated diseases. For the evaluation of Relative Riskfor Cardiovascular Disease, a High Sensitivity CRP (HSCRP)should be ordered. Dehydroepiandrosterone Sulfate 7.7 ug/dL 41.2-243.7 [facility] Comment on above: Performed at: [facility] [employer] [id number] Director: Anthony Bragg PhD, Phone: [phone] Estimated GFR (MDRD) Amer 121 mL/min >60 [facility] Comment on above: GFR Calc Estimated GFR (MDRD) Non-Af Amer 100 mL/min >60 [facility] Comment on above: Non- GFR Calc Estradiol (E2) Level < 11.0 pg/mL [facility] Comment on above: NORMAL REFERENCE RAN GES FEMALE FOLLICULAR 21.4 - 164.8 pg/mL MID-CYCLE PEAK 49.9 - 367.2 pg/mL LUTEAL 40.2 - 259.0 pg/mL POST-MENOPAUSAL ON MHT <11.0 - 462.1 pg/mL NOT ON MHT <11.0 - 58.3 pg/mL MALE <11.0 - 52.5 pg/mL NOTE:[employer] HAS CONFIRMED THE DRUG FULVETRANT (FASLODEX) MAY CAUSE FALSELY ELEVATED ESTRADIOL RESULTS WHEN USING THIS TEST METHOD. IF PATIENT IS TAKING FULVESTRANT AN ALTERNATIVE METHOD SHOULD BE USED TO DETERMINE ESTRADIOL CONCENTRATION. Vitamin D 25-Hydroxy 32.4 ng/mL [facility] Comment on above: Vitamin D 25(OH) Sta tus Range Deficiency <20 ng/mL (50nmol/L) Insufficiency 20 - 30 ng/mL (50 - 75 nmol/L) Sufficiency 30 - 100 ng/mL (75 - 250 nmol/L) Toxicity >100 ng/mL (>250 nmol/L) VLDL Cholesterol 23 mg/dL 5-40 [facility] Progesterone Levelon 024 Progesterone < 0.21 Normal See Comment [facility] Comment on above: Result Comment: Prog esterone Reference Table: UNITS Female: Follicular 0.15 - 1.40 ng/mL Luteal 3.34 - 25.56 ng/mL Mid-luteal 4.44 - 28.03 ng/mL Postmenopausal 0.0 - 0.73 ng/mL : 1st Trimester 11.22 - 90.00 ng/mL 2nd Trimester 25.55 - 89.40 ng/mL 3rd Trimester 48.40 -422.50 ng/mL Performed By: #### L 501.9985, L100.0100, L503.0105, L3300.1500, L506.1000, L501.6710, L500.4050, L101.9900, L500.4100, L509.4001, L3300.1750, L509.3000 #### [facility] [address] [place], [address] Serum or plasma calcium steffany urement (mass/volume)Ordered By: Terri Lobato on 11-09-2023 Calcium [Mass/Vol] 9.5 mg/dL 8.5-10.[address] [facility] Serum or plasma creatinine m easurement (mass/volume)Ordered By: Terri Lobato on 11-09-2023 Creatinine [Mass/Vol] 0.66 mg/dL 0.55-1.02 [facility] Comment on above: The validity of the calculated GFR & GFRAA in patients over 70 years has not been determined. Clinical correlation is essential. Serum or plasma progesterone measurement (mass/volume)Ordered By: Terri Lobato on 11-09-2023 Progesterone [Mass/Vol] ng/mL See Comment [facility] Comment on above: Progesterone Referen ce Table: UNITS Female: Follicular 0.15 - 1.40 ng/mL Luteal 3.34 - 25.56 ng/mL Mid-luteal 4.44 - 28.03 ng/mL Postmenopausal 0.0 - 0.73 ng/mL : 1st Trimester 11.22 - 90.00 ng/mL 2nd Trimester 25.55 - 89.40 ng/mL 3rd Trimester 48.40 -422.50 ng/mL Serum or plasma urea nitroge n measurement (mass/volume)Ordered By: Terri Lobato on 11-09-2023 Urea nitrogen [Mass/Vol] 11 mg/dL 7-18 [facility] Testosterone, Serum Totalon 11-09-2023 Testosterone [Mass/Vol] ng/dL Normal [facility] Comment on above: Result Comment: CENT RAL 90% REFERENCE RANGES MALE AGE <50 197.44 - 669.58 ng/dL MALE AGE > or = 50 187.72 - 684.19 ng/dL FEMALE AGE <50 8.38 - 35.01 ng/dL FEMALE AGE > or = 50 <7.00 - 35.92 ng/dL Effective as of 03/12/21 Performed By: #### L 501.9985, L100.0100, L503.0105, L3300.1500, L506.1000, L501.6710, L500.4050, L101.9900, L500.4100, L509.4001, L3300.1750, L509.3000 #### [facility] [address] [place], [place], [id number] Thin prep Papanicolaou smear with manual screeningOrdered By: Terri Lobato on 11-09-2023 Thin prep Papanicolaou smear with manual screening 3.9 g/dL 3.2-5.0 [facility] Thin prep Papanicolaou smear with manual screening 15 U/L 15-37 [facility] Thin prep Papanicolaou smear with manual screening 7 5-15 [facility] Vitamin B12on 11-09-2023 Cobalamin (Vitamin B12) [Mass/Vol] 626 pg/mL Normal 211-911 [facility] Comment on above: Performed By: #### L 501.9985, L100.0100, L503.0105, L3300.1500, L506.1000, L501.6710, L500.4050, L101.9900, L500.4100, L509.4001, L3300.1750, L509.3000 #### [facility] [address] [place], [place], [address] Vitamin D,25 Hydroxyon 11-08 Vitamin D 25-OH 32.4 ng/mL Normal [facility] Comment on above: Result Comment: Indu min D 25(OH) Status Range Deficiency <20 ng/mL (50nmol/L) Insufficiency 20 - 30 ng/mL (50 - 75 nmol/L) Sufficiency 30 - 100 ng/mL (75 - 250 nmol/L) Toxicity >100 ng/mL (>250 nmol/L) Performed By: #### L 501.9985, L100.0100, L503.0105, L3300.1500, L506.1000, L501.6710, L500.4050, L101.9900, L500.4100, L509.4001, L3300.1750, L509.3000 #### [facility] [address] [place], [address] Whole blood hemoglobin A1c/t otal hemoglobin ratio (mass fraction)Ordered By: Terri Lobato on 11-09-2023 HbA1c (Bld) [Mass fraction] 5.8 % 3.8-5.6 [facility] Comment on above: Normal < 5.7 % Predi abetic 5.7 - 6.4 % Diabetic >or= 6.5 % Please note range changes. Mammography Screening Deangelo B ilateralon 03-14-2020 1. Stable mammograms , without evidence of malignancy in either breast. BIRADS: BIRADS - CATEGORY 2 Benign, no evidence of malignancy. Normal interval follow-up is recommended in 12 months. OVERALL ASSESSMENT - BENIGN A letter of notification will be sent to the patient regarding the results. [facility], along with the [employer], the [employer], and [facility], recommend annual screening mammograms for women age 40 and older. FABRICIO/hughw Workstation ID: [id number] [facility] EXAMINATION: Bilateral screening digital mammography with CAD and 3D tomosynthesis, 03/14/2020. COMPARISON: 02/22/2019 back to 12/04/2010. FINDINGS: Both breasts are heterogeneously dense. There is postsurgical scar in the central retroareolar region of the right breast, unchanged. There are no masses or suspicious calcifications in either breast. [facility] Interface, Rad In Fuji Speechq - 03/14/2020 9:37 AM EDT EXAMINATION: Bilateral screening digital mammography with CAD and 3D tomosynthesis, 03/14/2020. COMPARISON: 02/22/2019 back to 12/04/2010. FINDINGS: Both breasts are heterogeneously dense. There is postsurgical scar in the central retroareolar region of the right breast, unchanged. There are no masses or suspicious calcifications in either breast. IMPRESSION: 1. Stable mammograms, without evidence of malignancy in either breast. BIRADS: BIRADS - CATEGORY 2 Benign, no evidence of malignancy. Normal interval follow-up is recommended in 12 months. OVERALL ASSESSMENT - BENIGN A letter of notification will be sent to the patient regarding the results. [facility], along with the [employer], the [employer], and [facility], recommend annual screening mammograms for women age 40 and older. Etece/jdw Workstation ID: [id number] [facility] Mammography Screening Deangelo B ilateralon 02-22-2019 Negative screening mammogram. BIRADS: Category 1 - Negative, no evidence of malignancy. Normal interval follow-up is recommended in 12 months. OVERALL ASSESSMENT - NEGATIVE A letter of notification will be sent to the patient regarding the results. [facility], along with the [employer] [facility], the [employer], and [facility], recommend annual screening mammograms for women age 40 and older. MPB/[employer] Workstation ID: [id number] [facility] EXAMINATION: MM SCREENING DEANGELO BILATERAL COMPARISON: 2010, 2013, 2014, 2016, 2017, 2018. HISTORY: Her paternal grandmother was diagnosed with breast cancer postmenopausally. She had an excisional biopsy of the right breast for atypia in 2014. She is currently asymptomatic. TECHNIQUE: We obtained standard views of each breast with 2D and 3D imaging. Computer-aided detection was utilized in the interpretation of this exam. FINDINGS: The breasts are heterogeneously dense. This type of pattern may obscure masses. There are no dominant masses, suspicious microcalcifications or areas of architectural distortion. Scarring in the retroareolar area of the right breast from the prior excision is again noted. No abnormal lymphadenopathy is seen. [facility] CBC WITH AUTO DIFFERENTIALon 10-22-2018 Basophils #/vol (Bld) 0.02 10*3/uL [facility] Basophils/100 WBC (Bld) 0.5 % [facility] Eosinophils #/vol (Bld) 0.10 10*3/uL [facility] Eosinophils/100 WBC (Bld) 2.3 % [facility] Erythrocyte distribution width Entitic volume (RBC) 12.6 % 11.6 - 14.8 % [facility] Hematocrit Volume Fraction (Bld) 44.3 % 36 - 46 % [facility] Hemoglobin mass conc (Bld) 14.3 g/dL 12 - 16 g/dL [facility] Immature granulocytes #/vol (Bld) 0.02 10*3/uL [facility] Immature granulocytes/100 WBC (Bld) 0.50 % [facility] Comment on above: The IG parameter is the percentage of metamyelocytes, myelocytes, and promyelocytes. Interpretation and review of laboratory results Abnormal [facility] Lymphocytes #/vol (Bld) 1.07 10*3/uL [facility] Lymphocytes/100 WBC (Bld) 24.9 % [facility] MCH Entitic mass (RBC) 27.9 pg 26 - 34 pg [facility] MCHC mass conc (RBC) 32.3 g/dL 31 - 37 g/dL [facility] MCV Entitic volume (RBC) 86.4 fL 80 - 100 fL [facility] Monocytes #/vol (Bld) 0.46 10*3/uL [facility] Monocytes/100 WBC (Bld) 10.7 % [facility] Neutrophils #/vol (Bld) 2.62 10*3/uL [facility] Neutrophils/100 WBC (Bld) 61.1 % [facility] Nucleated RBC #/vol (Bld) 0.00 10*3/uL [facility] Nucleated RBC/100 WBC Ratio (Bld) 0.0 % [facility] Platelet mean volume Entitic volume (Bld) 9.3 fL 9 - 15.5 fL [facility] Platelets #/vol (Bld) 256 10*3/uL [facility] RBC #/vol (Bld) 5.13 10*6/uL [facility] WBC #/vol (Bld) 4.29 10*3/uL Low [facility] Chem 7on 10-22-2018 Anion gap molar conc 16 mmol/L 10 - 20 mmol/L [facility] Chloride molar conc 100 mmol/L 98 - 108 mmol/L [facility] Creatinine mass conc 0.47 mg/dL 0.4 - 1 .1 mg/dL [facility] GFR/1.73 sq M predicted among non-blacks MDRD vol rate/area (S/P/Bld) The eGFR should be used for monitoring renal function only and not for medication dosing. [facility] GFR/1.73 sq M.predicted CKD-EPI vol rate/area (S/P/Bld) 121 >=60 mL/min/1.73 m2 [facility] Glucose mass conc 95 mg/dL 65 - 99 mg/dL [facility] HCO3 molar conc 30 mmol/L 21 - 32 mmol/L [facility] Interpretation and review of laboratory results Abnormal [facility] Potassium molar conc 4.5 mmol/L 3.5 - 5 .1 mmol/L [facility] Sodium molar conc 141 mmol/L 135 - 145 mmol/L [facility] Urea nitrogen mass conc 7 mg/dL Low 8 - 25 mg/dL [facility] Urea nitrogen/Creatinine mass ratio 14.9 mg/mg [facility] Otheron 10-22-2018 Extra Tube Hold for add-ons. [facility] Comment on above: Auto resulted. TROPONINon 10-22-2018 Interpretation and review of laboratory results Normal [facility] Troponin T.cardiac mass conc ug/L <=14 ng/L [facility] XR CHEST AP/PA AND LATon EXAMINATION: XR CHES T AP/PA AND LAT HISTORY: ORDERING SYSTEM PROVIDED HISTORY: anterior chest pain, recent flu dx, TECHNOLOGIST PROVIDED HISTORY: Reason for exam: anterior chest pain, recent flu dx Illness/Other Cancer History: no Surgery, RadiationHistory: no Encounter Type: Initial Additional signs and symptoms: prod cough ORDERING SYSTEM PROVIDED DIAGNOSIS CODES: Chest pain. Flu. COMPARISON: Chest CT 09/27/2007. FINDINGS: Two views of the chest were performed. The heart is normal in size. Mediastinal and hilar contours are unremarkable. Lungs are clear. No evidence of pleural effusion or pneumothorax. There is mild thoracolumbar scoliosis, which is partially imaged. No acute osseous abnormality is seen. [facility] Interface, Rad In Fuji Speechq - 10/22/2018 5:47 PM EST EXAMINATION: XR CHEST AP/PA AND LAT HISTORY: ORDERING SYSTEM PROVIDED HISTORY: anterior chest pain, recent flu dx, TECHNOLOGIST PROVIDED HISTORY: Reason for exam: anterior chest pain, recent flu dx Illness/Other Cancer History: no Surgery, RadiationHistory: no Encounter Type: Initial Additional signs and symptoms: prod cough ORDERING SYSTEM PROVIDED DIAGNOSIS CODES: Chest pain. Flu. COMPARISON: Chest CT 09/27/2007. FINDINGS: Two views of the chest were performed. The heart is normal in size. Mediastinal and hilar contours are unremarkable. Lungs are clear. No evidence of pleural effusion or pneumothorax. There is mild thoracolumbar scoliosis, which is partially imaged. No acute osseous abnormality is seen. IMPRESSION: No evidence of acute process in the chest. JRS/mkv Workstation ID: Unknown [facility] No evidence of acute process in the chest. JRS/mkv Workstation ID: Unknown [facility] POCT INFLUENZA Aon 9 FLUAV Ag Ql (Nph) Positive Abnormal Negative [facility] Interpretation and review of laboratory results Abnormal [facility] POCT INFLUENZA Bon 9 FLUBV Ag Ql (Nph) Negative Negative [facility] Interpretation and review of laboratory results Normal [facility] Mammography Screening Deangelo B ilateralon 02-01-2018 Mammography Screening Deangelo Bilateral No mammographic evidence of malignancy. BIRADS - CATEGORY 2 Benign, no evidence of malignancy. Normal interval follow-up is recommended in 12 months. OVERALL ASSESSMENT - BENIGN A letter of notification will be sent to the patient regarding the results. [facility], along with the National Comprehensive Cancer Network, the [employer], and [facility], recommend annual screening mammograms for women age 40 and older. SYJ/hb Workstation ID: [id number] Invalid Interpretation Code Zoomaal [facility] Mammography Screening Deangelo Bilateral EXAMINATION: MM SCREENING DEANGELO BILATERAL HISTORY: History of right breast excisional biopsy, benign. Screening mammogram. COMPARISON: 01/22/2017 and 01/22/2016. TECHNIQUE: Bilateral 2D and 3D CC and MLO views are performed. Computer-aided detection was utilized in the interpretation of this exam. FINDINGS: Breasts are heterogeneously dense. There is architectural distortion involving the right breast particularly in the subareolar region which remains stable and is compatible with posttreatment changes. No suspicious mass, architectural distortion or microcalcifications. A few benign punctate calcifications are present bilaterally. Invalid Interpretation Code Zoomaal [facility] Vital Signs Date Time Vital Sign Value Performing Clinician Facility 08-04-2024 10:050 Body height 177.8 cm [place] Phone: [facility] 08-04-2024 10:28-0500 Body mass index (BMI) [Ratio] 28.21 kg/m2 [place] Phone: [facility] 08-04-2024 10:28-050 Body weight 89.18 kg [place] Phone: [facility] 10-22-2018 15:15-0500 BP Diastolic 101 mm[Hg] [facility] 10-22-2018 15:15-0500 BP Systolic 162 mm[Hg] [facility] 10-22-2018 15:15-0500 Pulse (Heart Rate) 68 /min [facility] 10-22-2018 15:15-0500 Pulse Oximetry 96 % [facility] 10-22-2018 15:15-0500 Respiratory Rate 16 /min [facility] 10-22-2018 13:38-0500 BMI (Body Mass Index) 25.09 kg/m2 [facility] 10-22-2018 13:38-0500 Body Temperature 97.9 [degF] [facility] 10-22-2018 13:38-0500 Height 172.7 cm [facility] 10-22-2018 13:38-0500 Weight 74.84 kg [facility] 10-22-2018 13:15-0500 BP Diastolic 111 mm[Hg] [facility] 10-22-2018 13:15-0500 BP Systolic 187 mm[Hg] [facility] 10-22-2018 13:14-0500 BMI (Body Mass Index) 25.24 kg/m2 [facility] 10-22-2018 13:14-0500 Body Temperature 97.39 [degF] [facility] 10-22-2018 13:14-0500 Body weight 75.3 kg [facility] 10-22-2018 13:14-0500 Height 172.7 cm [facility] 10-22-2018 13:14-0500 Pulse (Heart Rate) 76 /min [facility] 10-22-2018 13:14-0500 Pulse Oximetry 99 % [facility] 10-22-2018 13:14-0500 Respiratory Rate 18 /min [facility] 10-20-2018 09:08-0500 BMI (Body Mass Index) 25.24 kg/m2 [facility] 10-20-2018 09:08-0500 Body Temperature 99.19 [degF] [facility] 10-20-2018 09:08-0500 BP Diastolic 105 mm[Hg[facility] 09:08-0500 BP Systolic 149 mm[Hg] Almaz Gregorio [facility] 10-20-2018 09:08-0500 Pulse (Heart Rate) 95 /min Almaz Gregorio [facility] 10-20-2018 09:08-0500 Pulse [facility]ximetry 96 % [facility] 10-20-[facility] 09:08-0500 Respiratory Rate 16 /min [facility] 10-20-2018 09:08-0500 Weight 75.3 [facility] En[facility]ters Encounter Date Encounter Type Care Provider Facility Start: 04-20-2025 End: 04-20-2025 [facility] Start: 03-28-2025 ambulatory [facility] Start: 03-28-2025 ambulatory TERRI LOBATO [facility] Start: 02-08-2025 ambulatory Jose Alfredo [facility] Start: 01-05-2025 ambulatory Santos Lock [facility] Start: 12-19-2024 ambulatory Santos Lock [facility] Start: 12-02-2024 ambulatory Santos Lock [facility] Start: 11-23-2024 ambulatory Santos Lock Malloy [facility] Start: 08-04-2024 End: 08-04-2024 Office outpatient new 45 minutes Santos Malloy Work Phone: [facility] [place] Start: 08-04-2024 ambulatory Santos Lock Malloy [facility] Start: 11-09-2023 ambulatory Terri Lobato NP Fa cility:[facility] Start: 11-09-2023 End: 11-09-2023 ambulatory [facility] Work Phone: Start: 11-09-2023 End: 11-09-2023 Patient encounter procedure [facility]-Laboratory, Specimen Work Phone: Start: 03-14-2020 End: 03-14-2020 Subsequent hospital visit by physician Sheeba Rojas Work Phone: [facility] Mammography Comment on above: Visit for screening mammogram Start: 02-22-2019 End: 02-22-2019 Subsequent hospital visit by physician Sheeba Rojas Work Phone: [facility] Mamm[facility] Comment on above: Screening breast exa mination Start: 10-22-2018 End: 10-22-2018 Patient encounter procedure JULI BEACH [facility] Start: 10-22-2018 End: 10-22-2018 Emergency department patient visit Juwan Hope Lucero Morton Work Phone: [facility] Department Comment on above: Chest wall pain (Ceci esau Dx); Elevated blood pressure reading Start: 10-22-2018 End: 10-22-2018 Patient encounter procedure Adriana Chaevzyamila Alexander Work Phone: [facility] Comment on above: Chest pain, unspecif ied type (Primary Dx); Elevated blood pressure reading Start: 10-20-2018 End: 10-20-2018 Patient encounter procedure JULI MIRELESHART [facility] Start: 10-20-2018 End: 10-20-2018 Office outpatient visit 25 minutes Almaz Gatesrocío Work Phone: [facility] Comment on above: Influenza-like sympt oms (Primary Dx); Influenza A Start: 02-01-2018 End: 02-01-2018 Ambulatory Casey Jim Work Phone: [facility] Mammography Procedures Date Procedure Procedure Detail Performing Clinician Start: 08-04-2024 End: 08-04-2024 Arthrocentesis aspir&/inj major jt/bursa w/o us Yu Rong Work Phone: Start: 08-04-2024 End: 08-04-2024 Bupivicaine Injection 0.5 mg Yu Rong Work Phone: Start: 08-04-2024 End: 08-04-2024 Inj Methylpred Acetate 1 MG Yu Rong Work Phone: Start: 08-04-2024 End: 08-04-2024 Radiologic exam knee complete 4/more views Yu Rong Work Phone: Start: 03-14-2020 MG Breast - bilatera l screening Sheeba Rojas Work Phone: Start: 02-22-2019 MG Breast - bilatera l screening Sheeba Rojas Work Phone: Start: 02-22-2019 Mammography Sheeba tubbs Start: 10-22-2018 Standard chest X-ray Be delfin Martinez Work Phone: Start: 10-22-2018 Basic metabolic 1998 panel - Serum or Plasma Felipe Mcfarlanendetelvina Work Phone: Start: 10-22-2018 Complete blood count with white cell differential, automated Felipe Martinez Work Phone: Start: 10-22-2018 Complete blood count with white cell differential, manual Felipe Martinez Work Phone: Start: 10-22-2018 YEUNG TOP Juwan Morton Work Phone: Start: 10-22-2018 LAVENDER TOP Juwan Morton Work Phone: Start: 10-22-2018 LIGHT BLUE TOP Juwan Morton Work Phone: Start: 10-22-2018 LIGHT GREEN TOP Juwan Morton Work Phone: Start: 10-22-2018 MINT GREEN TOP Juwan Morton Work Phone: Start: 10-22-2018 RAINBOW DRAW Juwan Morton Work Phone: Start: 10-22-2018 Troponin measurement Be delfin Martinez Work Phone: Start: 10-20-2018 Influenza virus A an tigen assay Almaz Gregorio Work Phone: Start: 10-20-2018 Influenza virus B an tigen assay Almaz Gregorio Work Phone: Start: 02-01-2018 Mammography Almaz deshpande Start: 09-15-2012 Microscopic observat ion [Identifier] in Cervix by Cyto stain Almaz Gregorio Plan of Treatment Date Care Activity Detail Author Start: 04-17-2020 Influenza vaccination given Se quential Influenza Vaccine (#1) [facility] Start: 02-23-2020 Screening mamm[facility] Start: 04-17-2019 Influenza vaccination given SE QUENTIAL INFLUENZA VACCINE (#1) [facility] Start: 02-01-2019 Protein mass conc Mammogram [facility] Start: 02-01-2019 Screening mammography [facility]ogram [facility] Start: 04-17-2018 Influenza vaccination SEQUENTI AL INFLUENZA VACCINE (Season Ended) [facility] Start: 04-17-2018 Influenza vaccination given SE QUENTIAL INFLUENZA VACCINE (#1) [facility] Start: 09-15-2015 Screening for malign ant neoplasm of cervix PAP SMEAR [facility] Start: 11-03-1991 Hepatitis C antibody , confirmatory test Hepatitis C Screening [facility] Start: 1988 HIV screening HIV Screening [facility] Start: 1976 History and physical examination, annual for health maintenance Wellness Visit [facility] Start: 1973 Tetanus vaccination [facility] Payers Date Payer Category Payer Self-pay 2023 Private Health Insurance [facility] [id number] 2019 Private Health Insurance MATILDA PRADO CHOICE FUND-ANY CHOICE FUND xxxxxxxxxxx 2019-Present xxxxxxxxxxx [id number] 2019 Private Health Insurance [id number] 2014 Unknown [facility] HMO/FAISAL/ FAISAL PLUS/CHOICE PLUS xxxxxxxxx 2014-Present xxxxxxxxx [id number] 2014 Unknown [id number] 1973 Unknown [id number] 1973 Unknown [id number] 1973 Unknown [id number] 1973 Unknown [id number] 1973 Unknown [id number] 1973 Unknown [id number] 1973 Unknown [id number] 1973 Unknown [id number] 1975 Unknown [id number] Unknown [id number] Social History Date Type Detail Facility Start: 02-01-2018 End: 10-22-2018 Tobacco smoking status NHIS Never smoker [facility] Sex Assigned At Not on file [facility] Start: 03-14-2020 Alcohol intake Current drinker of alcohol (finding) [facility] Exposure to SARS-CoV -2 (event) Not sure [facility] Start: 1975 Sex Assigned At Female [facility] Start: 08-04-2024 Tobacco smoking status NHIS Unknown if ever smoked [facility] Start: 08-04-2024 Alcohol intake Alcohol Use Details [facility] Start: 12-23-2023 Sexual Orientation Straight or heterosexual [facility] Functional Status Date Assessment Result Facility 08-04-2024 Pain severity - 0-10 verbal numeric rating [Score] - Reported 8/10 [facility] History of Present illness Narrative 08-04-2024 Note Date & Type Note Facility 08-04-2024 History of Presen t illness Narrative Encounter Date New Problem Right Knee Location: Right medial knee. Severity: Moderate. Duration: chronic Yes. Quality: Dull. Achy. Timing: Worse with exercise? Yes. Wakes you up at night? Yes. After overactivity? Yes. Associated Symptoms: Catching? Yes. Clicking? Yes. Grinding? Yes. Stiffness? Yes. Swelling? Yes. Gives out or gives way? Yes. Limited motion? Yes. Limited ADL's? Yes. Context: Difficulty ascending stairs? Yes. Difficulty descending stairs? Yes. Worse going from sitting to standing? Yes. Difficulty getting in and out of cars? Yes. Worse with twisting? Yes. Modifying Factors: Rest: makes it better. NSAID's: makes it better. Comments: Patient presents today to the office for evaluation of R knee pain. She does have an underlying history of rheumatoid arthritis as well as a history of chronic Lyme disease. She does h [facility] Work Phone: Consult note Note Date & Type Note Facility Consult note No Information [facility] Work Phone: Discharge summary Note Date & Type Note Facility Discharge summary No Information [facility] Phone: Evaluation note Note Date & Type Note Facility Evaluation note No assessment information [facility] Work Phone: Evaluation note Note Date & Type Note Facility Evaluation note Type No Information [facility] Work Phone: History and physical note Note Date & Type Note Facility History and physical note No Information [facility] Work Phone: Instructions Note Date & Type Note Facility Instructions Date No Information [facility] Phone: Progress note Note Date & Type Note Facility Progress note No Information [facility] Phone: Reason for referral (narrative) Note Date & Type Note Facility Reason for referral (narrati ve) No Information [facility] Phone: Assessments Diagnosis Visit for screening mammogra m Diagnosis Influenza-like symptoms- Primary Other general symptoms Influenza A Influenza with other respiratory manifestations Diagnosis Chest wall pain- Primary Painful respiration Elevated blood pressure reading Elevated blood pressure reading without diagnosis of hypertension Diagnosis Screening breast examination Other screening breast examination Diagnosis Visit for screening mammogram Diagnosis Chest pain, unspecified type- Primary Elevated blood pressure reading Elevated blood pressure reading without diagnosis of hypertension Instructions * Patient Instructions* Almaz Gregorio PA-C - 10/20/2018 9:43 AM EST Take prescribed medication(s) as directed. Take tylenol every 4 hours and ibuprofen every 6 hours for fever Add OTC meds for symptomatic relief. If OTC medicine contains either ibuprofen or acetaminophen, use that when alternating as described above. Max dose of tylenol in 24 hours - 4,000mg Drink lots of water, gatorade, powerade, etc If no improvement of symptoms in 3-5 days, follow up with PCP. If symptoms worsen or new ones develop, go to the ER immediately for further evaluation. Influenza (Flu): Care Instructions Your Care Instructions Influenza (flu) is an infection in the lungs and breathing passages. It is caused by the influenza virus. There are different strains, or types, of the flu virus from year to year. Unlike the common cold, the flu comes on suddenly and the symptoms, such as a cough, congestion, fever, chills, fatigue, aches, and pains, are more severe. These symptoms may last up to 10 days. Although the flu can make you feel very sick, it usually doesn't cause serious health problems. Home treatment is usually all you need for flu symptoms. But your doctor may prescribe antiviral medicine to prevent other health problems, such as pneumonia, from developing. Older people and those who have a long-term health condition, such as lung disease, are most at risk for having pneumonia or other health problems. Follow-up care is a duque part of your treatment and safety. Be sure to make and go to all appointments, and call your doctor if you are having problems. It s also a good idea to know your test resultsand keep a list of the medicines you take. How can you care for yourself at home? Get plenty of rest. Drink plenty of fluids, enough so that your urine is light yellow or clear like water. If you have kidney, heart, or liver disease and have to limit fluids, talk with your doctor before you increase the amount of fluids you drink. Take an cqca-nou-mdkmfmx pain medicine if needed, such as acetaminophen (Tylenol), ibuprofen (Advil, Motrin), or naproxen (Aleve), to relieve fever, headache, and muscle aches. Read and follow all instructions on the label. No one younger than 20 should take aspirin. It has been linked to Jerica syndrome, a serious illness. Do not smoke. Smoking can make the flu worse. If you need help quitting, talk to your doctor about stop-smoking programs and medicines. These can increase your chances of quitting for good. Breathe moist air from a hot shower or from a sink filled with hot water to help clear a stuffy nose. Before you use cough and cold medicines, check the label. These medicines may not be safe for youngchildren or for people with certain health problems. If the skin around your nose and lips becomes sore, put some petroleum jelly on the area. To ease coughing: Drink fluids to soothe a scratchy throat. Suck on cough drops or plain hard candy. Take an imec-xtt-swpgjpe cough medicine that contains dextromethorphan to help you get some sleep. Read and follow all instructions on the label. Raise your head at night with an extra pillow. This may help you rest if coughing keeps you awake. Take any prescribed medicine exactly as directed. Call your doctor if you think you are having a problem with your medicine. To avoid spreading the flu Wash your hands regularly, and keep your hands away from your face. Stay home from school, work, and other public places until you are feeling better and your fever has been gone for at least 24 hours. The fever needs to have gone away on its own without the help of medicine. Ask people living with you to talk to their doctors about preventing the flu. They may get antiviral medicine to keep from getting the flu from you. To prevent the flu in the future, get a flu vaccine every fall. Encourage people living with you toget the vaccine. Cover your mouth when you cough or sneeze. When should you call for help? Call 911 anytime you think you may need emergency care. For example, call if: You have severe trouble breathing. Call your doctor now or seek immediate medical care if: You have new or worse trouble breathing. You seem to be getting much sicker. You feel very sleepy or confused. You have a new or higher fever. You get a new rash. Watch closely for changes in your health, and be sure to contact your doctor if: You begin to get better and then get worse. You are not getting better after 1 week. Where can you learn more? Log into your personal health record on [email or web address] and enter L652 in the Education box to learn more about Influenza (Flu): Care Instructions. Current as of: January 07, 2016 Content Version: 11.2 7936-9726 [email or web address]. Care instructions adapted under license by your healthcare professional. If you have questions about a medical condition or this instruction, always ask your healthcare professional. [email or web address] disclaims any warranty or liability for your use of this information. in this encounter History of Present Illness * Almaz Gregorio PA-C - 10/20/2018 9:24 AM EST PATIENT NAME: Do Martínez [facility] [address] [place] [address] [address] [place] [address] : 1975 DATE OF VISIT: 10/20/2018 SS#: [id number] PROVIDER: Almaz Gregorio PA-C Chief Complaint Patient presents with URI head congestion, ST, productive cough, body aches, RODRIGUEZ x yesterday. Exposed to flu over the weekend.On amoxicillin bc of lyme disease SUBJECTIVE 42 y.o. female presents URI (head congestion, ST, productive cough, body aches, RODRIGUEZ x yesterday. Exposed to flu over the weekend. On amoxicillin bc of lyme disease) URI This is a new problem. The current episode started yesterday. The problem has been gradually worsening. Maximum temperature: subjective. The fever has been present for 1 to 2 days. Associated symptoms include congestion, coughing, ear pain, headaches, joint pain, a plugged ear sensation, sinus pain, a sore throat and swollen glands. Pertinent negatives include no abdominal pain, chest pain, diarrhea, dysuria, joint swelling, nausea, neck pain, rash, rhinorrhea, sneezing, vomiting or wheezing. Treatments tried: OTC meds. The treatment provided no relief. MEDICAL ISSUES Past Medical History: Diagnosis Date Anxiety Arthritis Bloody discharge from right nipple 07/05/2015 Fibromyalgia, primary GERD (gastroesophageal reflux disease) History of echocardiogram 2014 [facility] NL TEST History of stress test 2013 [facility] NL TEST Hypertension no longer on meds Intraductal papilloma of right breast 08/23/2015 Lyme disease Malignant hyperthermia due to anesthesia Mass of right breast on mammogram 07/05/2015 Migraine Nipple discharge PONV (postoperative nausea and vomiting) severe vomiting for days, even with conscious sedation Rheumatoid arthritis (HCC) Uterine fibroid Patient Active Problem List Diagnosis SNOMED CT(R) Mass of right breast on mammogram MAMMOGRAPHIC MASS OF RIGHT BREAST Intraductal papilloma of right breast INTRADUCTAL PAPILLOMA OF RIGHT BREAST Uterine fibroid UTERINE LEIOMYOMA S/P KEENA-BSO (total abdominal hysterectomy and bilateral salpingo-oophorectomy) HISTORY OF TOTAL HYSTERECTOMY WITH BILATERAL SALPINGO-OOPHORECTOMY SOCIAL HISTORY Social History Socioeconomic History Marital status: Spouse name: Not on file Number of children: Not on file Years of education: Not on file Highest education level: Not on file Social Needs Financial resource strain: Not on file Food insecurity - worry: Not on file Food insecurity - inability: Not on file Transportation needs - medical: Not on file Transportation needs - non-medical: Not on file Occupational History Not on file Tobacco Use Smoking status: Never Smoker Smokeless tobacco: Never Used Substance and Sexual Activity Alcohol use: Yes Alcohol/week: 1.2 - 1.8 oz Types: 2 - 3 Glasses of wine per week Drug use: No Sexual activity: Not on file Other Topics Concern Not on file Social History Narrative Not on file FAMILY HISTORY Family History Problem Relation Age of Onset Breast cancer Paternal Grandmother 85 Heart disease Father Deep vein thrombosis Father AFTER CABG Surgical complications Neg Hx Anesthesia problems Neg Hx Clotting disorder Neg Hx Pulmonary embolism Neg Hx REVIEW OF SYSTEMS Review of Systems Constitutional: Positive for chills, fatigue and fever. HENT: Positive for congestion, ear pain, postnasal drip, sinus pressure, sinus pain and sore throat. Negative for rhinorrhea and sneezing. Respiratory: Positive for cough. Negative for wheezing. Cardiovascular: Negative for chest pain. Gastrointestinal: Negative for abdominal pain, diarrhea, nausea and vomiting. Genitourinary: Negative for dysuria. Musculoskeletal: Positive for arthralgias, joint pain and myalgias. Negative for neck pain. Skin: Negative for rash. Neurological: Positive for headaches. MEDICATIONS PRIOR TO VISIT Current Outpatient Medications on File Prior to Visit Medication Sig Dispense Refill amoxicillin (AMOXIL) 875 MG tablet Take 875 mg by mouth 2 (two) times a day . 1 cholecalciferol, vitamin D3, (VITAMIN D3) 5,000 unit Tab tablet Take by mouth daily. escitalopram oxalate (LEXAPRO) 10 MG tablet 10 mg nightly ReasonsAnxiety with Depression hydroxychloroquine (PLAQUENIL) 200 mg tablet Take by mouth 2 (two) times a day. PREDNISONE ORAL Take by mouth 2 (two) times a day Takes 3 mg in am, 2 mg in pm Reasons: 2mg daily. rizatriptan (MAXALT-INSTRUMENT MAN) 10 MG disintegrating tablet as needed for migraine ascorbic acid, vitamin C, (vitamin C) 1000 MG tablet Take 1,000 mg by mouth daily. ASPIRIN/ACETAMINOPHEN/CAFFEINE (EXCEDRIN EXTRA STRENGTH ORAL) Take by mouth every 8 (eight) hours as needed. COCONUT OIL ORAL Take 3,000 mg by mouth daily Reasons: Supplement. diazePAM (VALIUM) 10 MG tablet Take 10 mg by mouth 2 (two) times a day as needed for anxiety. UNABLE TO FIND Med Name: bio fibrin 3 capsules daily . No current facility-administered medications on file prior to visit. ALLERGIES/INTOLERANCES Allergies Allergen Reactions Dilaudid [Hydromorphone] AFTER SURG 2005/ HISTAMINE REACTION W/ HIVES OBJECTIVE BP (!) 149/105 Pulse 95 Temp 99.2 F (37.3 C) (Tympanic) Resp 16 Wt 75.3 kg (166 lb) LMP 04/29/2016 SpO2 96% BMI 25.24 kg/m Physical Exam Constitutional: She is oriented to person, place, and time. She appears well- developed and well-nourished. HENT: Head: Normocephalic and atraumatic. Right Ear: Tympanic membrane is injected. Left Ear: Tympanic membrane is injected. Nose: Mucosal edema present. Mouth/Throat: Posterior oropharyngeal erythema present. No oropharyngeal exudate or posterior oropharyngeal edema. Cardiovascular: Normal rate, regular rhythm and normal heart sounds. Pulmonary/Chest: Effort normal and breath sounds normal. Lymphadenopathy: She has cervical adenopathy. Neurological: She is alert and oriented to person, place, and time. Skin: Skin is warm and dry. PROCEDURE Procedures Results Recent Results (from the past 168 hour(s)) POC Influenza A Collection Time: 10/20/18 9:35 AM Result Value Ref Range Rapid Influenza A Ag Positive (A) Negative POC Influenza B Collection Time: 10/20/18 9:35 AM Result Value Ref Range Rapid Influenza B Ag Negative Negative ASSESSMENT/PLAN (expressed as patient instructions): SNOMED CT(R) 1. Influenza-like symptoms INFLUENZA-LIKE SYMPTOMS POC Influenza A POC Influenza B 2. Influenza A INFLUENZA DUE TO INFLUENZA A VIRUS oseltamivir (TAMIFLU) 75 MG capsule No follow-ups on file. ADDITIONAL CLINICAL COMMENTS Flu A positive. -Educated pt on diagnoses, medications, and OTC options for symptom relief. -Patient instructed to follow-up with PCP if symptoms fail to improve or go to the ER if worsening symptoms. ORDERS PLACED THIS VISIT Orders Placed This Encounter Procedures POC Influenza A POC Influenza B MEDICATION LIST AT END OF VISIT Current Outpatient Medications Medication Sig Dispense Refill amoxicillin (AMOXIL) 875 MG tablet Take 875 mg by mouth 2 (two) times a day . 1 cholecalciferol, vitamin D3, (VITAMIN D3) 5,000 unit Tab tablet Take by mouth daily. escitalopram oxalate (LEXAPRO) 10 MG tablet 10 mg nightly ReasonsAnxiety with Depression hydroxychloroquine (PLAQUENIL) 200 mg tablet Take by mouth 2 (two) times a day. PREDNISONE ORAL Take by mouth 2 (two) times a day Takes 3 mg in am, 2 mg in pm Reasons: 2mg daily. rizatriptan (MAXALT-INSTRUMENT MAN) 10 MG disintegrating tablet as needed for migraine ascorbic acid, vitamin C, (vitamin C) 1000 MG tablet Take 1,000 mg by mouth daily. ASPIRIN/ACETAMINOPHEN/CAFFEINE (EXCEDRIN EXTRA STRENGTH ORAL) Take by mouth every 8 (eight) hours as needed. COCONUT OIL ORAL Take 3,000 mg by mouth daily Reasons: Supplement. diazePAM (VALIUM) 10 MG tablet Take 10 mg by mouth 2 (two) times a day as needed for anxiety. oseltamivir (TAMIFLU) 75 MG capsule Take 1 (one) capsule (75 mg total) by mouth 2 (two) times a dayfor 5 days . 10 capsule 0 UNABLE TO FIND Med Name: bio fibrin 3 capsules daily . No current facility-administered medications for this visit. in this encounter* Adriana Alexander DO - 10/22/2018 1:27 PM EST [facility] Brief Evaluation Form Patient Transfer to ED without Admit to Urgent Care Date: 10/22/18 Time: 1:27 PM Name: Do Martínez : [id number] [facility] [address] (home) Do Martínez presented to [facility] with Chest Pain (C/o Sertnum pain got worse fromher visit. ) . BP (!) 187/111 Pulse 76 Temp 97.4 F (36.3 C) (Tympanic) Resp 18 Ht 5' 8 Wt 75.3 kg (166 lb) LMP 04/29/2016 SpO2 99% BMI 25.24 kg/m Allergies: Dilaudid [hydromorphone] Do Martínez has a current medication list which includes the following prescription(s): amoxicillin, ascorbic acid (vitamin c), aspirin/acetaminophen/caffeine, cholecalciferol (vitamin d3), coconut oil, diazepam, escitalopram oxalate, hydroxychloroquine, oseltamivir, prednisone, rizatriptan,and UNABLE TO FIND. Do Martínez has a past medical history of Anxiety, Arthritis, Bloody discharge from right nipple (07/05/2015), Fibromyalgia, primary, GERD (gastroesophageal reflux disease), History of echocardiogram (2014), History of stress test (2013), Hypertension, Intraductal papilloma of right breast (), Lyme disease, Malignant hyperthermia due to anesthesia, Mass of right breast on mammogram(07/05/2015), Migraine, Nipple discharge, PONV (postoperative nausea and vomiting), Rheumatoid arthritis (HCC), and Uterine fibroid. Exam: Do Martínez was seen by Adriana Alexander DO and is being transferred to [place] [facility] Do Martínez being transported via [employer] (Self). There were no encounter diagnoses. Discussion Regarding Transfer: Given elevated blood pressure and non-reproducable chest pain pt was sent to ed for further evaluation. Transfer Center Called ED Called Additional Comments: Adriana Alexander DO 10/22/18 *Transfer location subject to change based on patient condition during transport at EMS discretion. in this encounter Advance Directives No Advanced Directives Records FoundLatest Code Status on File Code Status Date Activated Date Inactivated Comments Full Code 09/23/2016 12:25 PM 09/26/2016 2:46 PM Documents on File Type Date Recorded Patient Pathology Technician Expl anation Advance Directives and Livin g Will 10/22/2018 2:09 PM Advance Directives and Livin g Will 02/22/2019 6:24 AM Latest Code Status on File Code Status Date Activated Date Inactivated Comments Full Code 09/23/2016 12:25 PM 09/26/2016 2:46 PM Documents on File Type Date Recorded Patient Pathology Technician Expl anation Advance Directives and Livin g Will 10/22/2018 2:09 PM Advance Directives and Livin g Will 03/14/2020 12:00 AM Directive Yes / No Effective Date File Name No Information Discharge Instructions * Attachments The following attachments cannot be sent through Care Everywhere. * Chest Pain: Musculoskeletal (Haitian) * Chest Pain (Haitian) * Blood Pressure: Elevated (Haitian) in this encounter Summary Purpose Family History No Family History Records Found Family Member Type Diagnosis Age At Onset No Information Reason for Referral Status Reason Specialty Diagnoses / Procedures Referred By Contact Referred To Contact Pending Review Radiology Diagnoses Visit for screening mammogram Procedures Mammography Screening Deangelo Bilateral Sheeba Rojas MD [address] [place] [address] Additional Source Comments Reason for Visit (unrecogniz ed section and content) Reason Comments URI head congestion, ST, productive cough, body aches, RODRIGUEZ x yesterday. Exposed to flu over the weekend. On amoxicillin bc of lyme disease Reason Comments Chest Pain Status Reason Specialty Diagnoses / Procedures Referred By Contact Referred To Contact Pending Review Radiology Diagnoses Screening breast examination Procedures Mammography Screening Deangelo Bilateral Mammography Screening Bilateral Sheeba Rojas MD [address] [place] [address] Status Reason Specialty Diagnoses / Procedures Referred By Contact Referred To Contact Pending Review Radiology Diagnoses Visit for screening mammogram Procedures Mammography Screening Deangelo Bilateral Sheeba Rojas MD [address] [place] [address] Reason Comments Chest Pain C/o Sertnum pain got worse from her visit. Vahe Lieberman RN - 10/22/2018 4:04 PM ESTHereFelipe calderon PA-C - 10/22/2018 3:53 PM Vahe Villarreal RN - 10/22/2018 1:46 PM EST ED Notes (unrecognized secti on and content) Patient discharged out of ED to home in no apparent distress. Pt ambulatory with steady gait after declining wheelchair. Pt is alert and oriented x 4, respirations even and unlabored, skin is pink/warm/dry. No additional needs or concerns at this time. ED PROVIDER NOTE [facility] NAME: Do Martínez AGE: 42 y.o. : 1975 VISIT DATE: 10/22/2018 CSN: [id number] PCP: Juli Beach MD Chief Complaint Patient presents with Chest Pain Patient is a 42-year-old female with history of anxiety, GERD, Lyme disease, rheumatoid arthritis, migraines who presents to the emergency department for evaluation of chest pain. Was diagnosed with flu several days ago. Currently on Tamiflu. These have a cough. Continues to have significant congestion. Has been taking beol-mcy-[id number] cold medications without significant improvement although she does feel she is getting a little bit better. She went to the urgent care due to the chest pain which she felt was likely due to the coughing however they sent her here with elevated blood pressure in the chest pain. She feels that the elevated blood pressure is likely because she is very nervous and uncomfortable. She has not had any previous heart issues. She does have a family history of heart issues. No personal history of hypertension hyperlipidemia diabetes. She is not a smoker. No leg pain or leg swelling. No history of DVT or PE. She reports that she is currently also on amoxicillin 875 mg twice daily for sinus infection that started prior to the influenza. No abdominal pain. No vomiting. Has not noticed anything that really makes the pain better. Does seem to be a little bit sore to the touch like it is bruised. Past Medical History: Diagnosis Date Anxiety Arthritis Bloody discharge from right nipple 07/05/2015 Fibromyalgia, primary GERD (gastroesophageal reflux disease) History of echocardiogram 2014 [facility] NL TEST History of stress test 2013 [facility] NL TEST Hypertension no longer on meds Intraductal papilloma of right breast 08/23/2015 Lyme disease Malignant hyperthermia due to anesthesia Mass of right breast on mammogram 07/05/2015 Migraine Nipple discharge PONV (postoperative nausea and vomiting) severe vomiting for days, even with conscious sedation Rheumatoid arthritis (HCC) Uterine fibroid Past Surgical History: Procedure Laterality Date BREAST BIOPSY Right 07/2015 papilloma BREAST MASS W/ NEEDLE LOC Right 08/02/2015 Procedure: RIGHT BREAST LUMPECTOMY WITH NEEDLE PLACEMENT; Surgeon: Johanny Sparrow MD; Location: [facility] Main OR; Service: EGD 2013 EXPLORATORY LAPAROTOMY HYSTERECTOMY ABDOMINAL OPEN N/A 09/23/2016 Procedure: TOTAL ADOMINAL HYSTERECTOMY WITH BILATERAL SALPINGOOOPHERECTOMY ; Surgeon: Casey Maurer MD; Location: [facility] Main OR; Service: PELVISCOPY 2005 Family History Problem Relation Age of Onset Breast cancer Paternal Grandmother 85 Heart disease Father Deep vein thrombosis Father AFTER CABG Surgical complications Neg Hx Anesthesia problems Neg Hx Clotting disorder Neg Hx Pulmonary embolism Neg Hx Social History Socioeconomic History Marital status: Spouse name: Not on file Number of children: Not on file Years of education: Not on file Highest education level: Not on file Social Needs Financial resource strain: Not on file Food insecurity - worry: Not on file Food insecurity - inability: Not on file Transportation needs - medical: Not on file Transportation needs - non-medical: Not on file Occupational History Not on file Tobacco Use Smoking status: Never Smoker Smokeless tobacco: Never Used Substance and Sexual Activity Alcohol use: Yes Alcohol/week: 1.2 - 1.8 oz Types: 2 - 3 Glasses of wine per week Drug use: No Sexual activity: Not on file Other Topics Concern Not on file Social History Narrative Not on file Previous Medications Medication Sig amoxicillin (AMOXIL) 875 MG tablet Take 875 mg by mouth 2 (two) times a day . ascorbic acid, vitamin C, (vitamin C) 1000 MG tablet Take 1,000 mg by mouth daily. ASPIRIN/ACETAMINOPHEN/CAFFEINE (EXCEDRIN EXTRA STRENGTH ORAL) Take by mouth every 8 (eight) hours as needed. cholecalciferol, vitamin D3, (VITAMIN D3) 5,000 unit Tab tablet Take by mouth daily. COCONUT OIL ORAL Take 3,000 mg by mouth daily Reasons: Supplement. diazePAM (VALIUM) 10 MG tablet Take 10 mg by mouth 2 (two) times a day as needed for anxiety. escitalopram oxalate (LEXAPRO) 10 MG tablet 10 mg nightly ReasonsAnxiety with Depression hydroxychloroquine (PLAQUENIL) 200 mg tablet Take by mouth 2 (two) times a day. oseltamivir (TAMIFLU) 75 MG capsule Take 1 (one) capsule (75 mg total) by mouth 2 (two) times a day for 5 days . PREDNISONE ORAL Take by mouth 2 (two) times a day Takes 3 mg in am, 2 mg in pm Reasons: 2mg daily. rizatriptan (MAXALT-INSTRUMENT MAN) 10 MG disintegrating tablet as needed for migraine UNABLE TO FIND Med Name: bio fibrin 3 capsules daily . Allergies Allergen Reactions Dilaudid [Hydromorphone] AFTER SURG 2006/ HISTAMINE REACTION W/ HIVES Review of Systems Constitutional: No fevers Skin: No color change Eyes: No discharge ENMT: No drooling, No trouble swallowing Respiratory: cough Endocrine: no polyphagia Neurologic: no new facial asymmetry Psychiatric: No self-injury Hematologic/Lymphatic: No new easy bruising Allergic/Immunologic: no urticaria Other pertinent positives and negatives in HPI Patient Vitals for the past 24 hrs: BP Temp Temp src Pulse Resp SpO2 Height Weight 10/22/18 1515 (!) 162/101 68 16 96 % 10/22/18 1500 (!) 172/111 65 12 95 % 10/22/18 1338 (!) 180/117 97.9 F (36.6 C) Oral (!) 105 18 99 % 5' 8 74.8 kg (165 lb) Physical Exam Constitutional: She is oriented to person, place, and time. She appears well-developed and well-nourished. No distress. HENT: Head: Normocephalic and atraumatic. Right Ear: Tympanic membrane, external ear and ear canal normal. Left Ear: Tympanic membrane, external ear and ear canal normal. Nose: Mucosal edema present. Mouth/Throat: Oropharynx is clear and moist. No oropharyngeal exudate. Eyes: EOM are normal. Neck: Normal range of motion. Neck supple. Cardiovascular: Normal rate, regular rhythm and normal heart sounds. Exam reveals no gallop and no friction rub. No murmur heard. Pulses: Radial pulses are 2+ on the right side, and 2+ on the left side. Posterior tibial pulses are 2+ on the right side, and 2+ on the left side. Pulmonary/Chest: Effort normal and breath sounds normal. No respiratory distress. She has no wheezes. She has no rales. She exhibits tenderness (mild tenderness to lower sternum and sternal border more on the left). Abdominal: Soft. Bowel sounds are normal. She exhibits no distension. There is no tenderness. There is no rebound and no guarding. Musculoskeletal: Normal range of motion. She exhibits no edema or tenderness. Neurological: She is alert and oriented to person, place, and time. Skin: Skin is warm and dry. No rash noted. She is not diaphoretic. No erythema. No pallor. Psychiatric: Her behavior is normal. Her mood appears anxious. Nursing note and vitals reviewed. Laboratory & Radiographic Imaging (if done): Results for orders placed or performed during the hospital encounter of 10/22/18 Chem 7 Result Value Ref Range Sodium 141 135 - 145 mmol/L Potassium 4.5 3.5 - 5.1 mmol/L Chloride 100 98 - 108 mmol/L Bicarbonate 30 21 - 32 mmol/L Creatinine 0.47 0.40 - 1.10 mg/dL Glucose 95 65 - 99 mg/dL BUN 7 (L) 8 - 25 mg/dL eGFR 121 >=60 mL/min/1.73 m2 BUN/Creatinine Ratio 14.9 10.0 - 20.0 Anion Gap 16 10 - 20 mmol/L Troponin Result Value Ref Range Troponin T <6 <=14 ng/L CBC Auto Differential Result Value Ref Range WBC 4.29 (L) 4.50 - 11.00 K/mcL RBC 5.13 4.00 - 5.20 M/mcL Hemoglobin 14.3 12.0 - 16.0 g/dL Hematocrit 44.3 36.0 - 46.0 % MCV 86.4 80.0 - 100.0 fL MCH 27.9 26.0 - 34.0 pg MCHC 32.3 31.0 - 37.0 g/dL Platelets 256 150 - 400 K/mcL RDW - CV 12.6 11.6 - 14.8 % MPV 9.3 9.0 - 15.5 fL Neutrophils 61.1 % Lymphocytes 24.9 % Monocytes 10.7 % Eosinophils 2.3 % Basophils 0.5 % IG Percent 0.50 % Neutrophils Abs 2.62 1.70 - 7.00 K/mcL Lymphocytes Abs 1.07 0.90 - 4.00 K/mcL Monocytes Abs 0.46 0.30 - 0.90 K/mcL Eosinophils Abs 0.10 0.00 - 0.50 K/mcL Basophils Abs 0.02 0.00 - 0.30 K/mcL IG Absolute 0.02 0.00 - 0.30 K/mcL Nucleated RBC 0.0 % Nucleated RBC Abs 0.00 0.00 - 0.00 K/mcL XR Chest AP/PA and LAT Preliminary Result No evidence of acute process in the chest. JRS/mkv Workstation ID: Unknown Procedures MDM Patient presented for evaluation of chest pain and high blood pressure. She has had the flu. [place] chest pain was likely secondary to coughing which I agree with. Her heart score is 1. Patient is low risk for PE based on her Wells criteria and she is PERC negative currently. She was documented to have an elevated heart rate however she was quite tearful when I feel this is likely due to her anxiety. During my exam she was mostly in the 80s. She does not have other risk factors for pulmonary embolism. Her chest is slightly tender and I do feel this is musculoskeletal. Her chest x-ray is negative. Troponin is normal. We are going to discharge the patient home. Advised to follow-up with PCP. She is pretty congested and I am going to start her on Flonase. ED Course as of Oct 22 1553 ThuOct 22, 2018 1510 HR currently 65; Wells score 0 for PE. Advised to follow-up with primary physician within the next few days regarding blood pressure, advised that some of the decongestants that she has been taking may contribute to mildly elevated blood pressure as well. As the patient has no evidence of , acute stroke, cardiac ischemia, pulmonary edema, encephalopathy, or congestive heart failure, according to the 2013 ACEP clinical policy on asymptomatic elevated blood pressure, In patients with asymptomatic markedly elevated blood pressure, routine ED medical intervention is not required. [IS] ED Course User Index [IS] Juwan Morton MD . Clinical Impression: SNOMED CT(R) 1. Chest wall pain CHEST WALL PAIN 2. Elevated blood pressure reading ELEVATED BLOOD PRESSURE ED Disposition ED Disposition Condition Comment Discharge Stable Do Martínez discharged to home/self care in stable condition. Follow-up Information 1. Juli Beach MD. Specialty: Internal Medicine [address] [place] [address] Contact information for after-discharge care Follow-up information has not been specified. New Prescriptions fluticasone (FLONASE) 50 mcg/actuation nasal spray Instill 2 (two) sprays into each nostril daily . Felipe Martinez PA-C 10/22/18 1557 Pt reports midsternal chest pain since yesterday. Denies shortness of breath. Denies radiation of pain. Denies n/v. Reports being diagnosed with flu on Thursday and being treated with tamiflu. Reports productive cough with yellow phlegm. Denies pain on inspiration. Denies recent leg swelling, cramping, or pain. in this encounter ED Attestation Note - Juwan Morton MD - 10/22/2018 3:12 PM EST Miscellaneous Notes (unrecog nized section and content) I personally interviewed the patient. I personally examined the patient. I discussed the patient with HAND PAINTER/PA. I agree with the HAND PAINTER/PA treatment plan. I agree with the HAND PAINTER/PA plan of care. I agree with the HAND PAINTER/PA dispo as documented. HPI: Patient with history of arthritis, anxiety, family history of cardiac disease, history of borderline elevated blood pressure without current medication use for hypertension presents with concern for a couple day history of retrosternal aching pain in context of recent diagnosis of influenza. Patient is currently on Tamiflu, states she has been coughing quite a bit, states that the coughing has improved today compared to yesterday. Denies history of blood clots, recent surgery, hemoptysis, leg swelling, history of cancer; patient denies pleuritic component to her chest pain, denies that the pain is ripping or tearing or radiating to her back. Denies trouble moving her arms or legs. Denies unintentional weight loss of at least 10 pounds within the past three months, headache, eye pain, dyspnea, syncope, abdominal pain, vomiting, change in bowel or bladder function, trauma/falls, rashes, suicidal ideation, other concerns; patient unsure of answers to other location/quality/alleviating/exacerbating/associated symptoms/setting/timing/severity questions aside from those above. Past Medical History: Diagnosis Date Anxiety Arthritis Bloody discharge from right nipple 07/05/2015 Fibromyalgia, primary GERD (gastroesophageal reflux disease) History of echocardiogram 2014 [facility] NL TEST History of stress test 2013 [facility] NL TEST Hypertension no longer on meds Intraductal papilloma of right breast 08/23/2015 Lyme disease Malignant hyperthermia due to anesthesia Mass of right breast on mammogram 07/05/2015 Migraine Nipple discharge PONV (postoperative nausea and vomiting) severe vomiting for days, even with conscious sedation Rheumatoid arthritis (HCC) Uterine fibroid Past Surgical History: Procedure Laterality Date BREAST BIOPSY Right 07/2015 papilloma BREAST MASS W/ NEEDLE LOC Right 08/02/2015 Procedure: RIGHT BREAST LUMPECTOMY WITH NEEDLE PLACEMENT; Surgeon: Johanny Sparrow MD; Location: [facility] Main OR; Service: EGD 2013 EXPLORATORY LAPAROTOMY HYSTERECTOMY ABDOMINAL OPEN N/A 09/23/2016 Procedure: TOTAL ADOMINAL HYSTERECTOMY WITH BILATERAL SALPINGOOOPHERECTOMY ; Surgeon: Casey Maurer MD; Location: [facility] Main OR; Service: PELVISCOPY 2005 Social History Socioeconomic History Marital status: Spouse name: None Number of children: None Years of education: None Highest education level: None Social Needs Financial resource strain: None Food insecurity - worry: None Food insecurity - inability: None Transportation needs - medical: None Transportation needs - non-medical: None Occupational History None Tobacco Use Smoking status: Never Smoker Smokeless tobacco: Never Used Substance and Sexual Activity Alcohol use: Yes Alcohol/week: 1.2 - 1.8 oz Types: 2 - 3 Glasses of wine per week Drug use: No Sexual activity: None Other Topics Concern None Social History Narrative None PE: VITALS: Reviewed, BP 172/111. GEN: Nontoxic, negative Velasco's sign. HEENT: NC/AT, MMM. NECK: Supple, no JVD. CARDIO: Regular rhythm, normal S1/S2 without murmurs/rubs/gallops. PPP, symmetric. Negative Jerry's crunch. RESP: CTAB, normal effort, moderate airflow; no wheezes/crackles/stridor. ABDOMEN: Soft; warm; nontender; nondistended; no pulsatile masses; no guarding/rebound tenderness. NEURO: GCS 15, no focal deficits. CN II-XII intact. Normal strength, sensation to all extremities. EXT: Warm, no edema, no palpable venous cords, no arachnodactyly. SKIN: No rash. No crepitus. PSYCH: Normal affect, no suicidal ideation. Procedures/EKG: EKG Interpretation: The EKG interpreted by me in the absence of a roll setter shows: Rhythm: sinus Rate: 85, normal [place]: normal [place] interval: normal QRS duration: normal QTc: normal Voltage: not low No evidence of STEMI No evidence of notable ST depression to suggest severe acute ischemia No de Winter T waves, Wellens or Brugada syndrome patterns Patient otherwise well-appearing, heart score below 4. Advised PCP follow-up within next few days. Patient is nontoxic in appearance and will be discharged in stable condition with instructions for follow up. All results of medical workup were discussed with the patient. All of the patient's questions were answered in layman's terms and there were no further questions at time of discharge. Discharge information provided in writing with additional verbal instructions. Patient verbalized comprehensive understanding of treatment plan. Patient advised to return to the emergency department immediately for any new, worsening, or otherwise concerning symptoms, or if unable to follow up with primary doctor as advised. In addition to the above, an extensive differential diagnosis for the patient's symptoms was considered and emergent conditions that were considered but felt to be sufficiently clinically unlikely were not pursued diagnostically. Nursing notes and vital signs reviewed. I advised the patient to have PCP obtain records from today's visit as soon as possible to ensure potential incidental findings are addressed. ED Course as of Oct 23 1511ThuOct 22, 2018 1510 HR currently 65; Wells score 0 for PE. Advised to follow-up with primary physician within the next few days regarding blood pressure, advised that some of the decongestants that she has been taking may contribute to mildly elevated blood pressure as well. As the patient has no evidence of , acute stroke, cardiac ischemia, pulmonary edema, encephalopathy, or congestive heart failure, according to the 2013 [employer] clinical policy on asymptomatic elevated blood pressure, In patients with asymptomatic markedly elevated blood pressure, routine ED medical intervention is not required. [IS] ED Course User Index [IS] Juwan Morton MD in this encounter INFORMATION SOURCE (unrecogn ized section and content) DATE CREATED AUTHOR 10/24/2018 [facility] DATE CREATED AUTHOR AUTHOR'S ORGANIZ ATION 11/10/2023 [facility] DATE CREATED AUTHOR AUTHOR'S ORGANIZ ATION 02/09/2025 [facility] DATE CREATED AUTHOR AUTHOR'S ORGANIZ ATION 03/29/2025 [facility] DATE CREATED AUTHOR AUTHOR'S ORGANIZ ATION 04/28/2025 [facility] Care Teams (unrecognized sec tion and content) Team Status: Inactive Member Role Status Dates Terir Lobato HAND PAINTER, HAND PAINTER-C Attending Provider, Jose ty Provider Active Name Effective Dates (start - stop) Status Members No Information Goals (unrecognized section and content) Health Concern Goal Type Priority Status No Information FOR RECORDS PERTAINING TO PATIENTS WHO ARE OR HAVE BEEN ENROLLED IN A CHEMICAL DEPENDENCY/SUBSTANCEABUSE PROGRAM, SOME INFORMATION MAY BE OMITTED. This clinical summary was aggregated from multiple sources. Caution should be exercised in using it in the provision of clinical care. This summary normalizes information from multiple sources, and as a consequence, information in this document may materially change the coding, format and clinical context of patient data. In addition, data may be omitted in some cases. CLINICAL DECISIONS SHOULD BE BASED ON THE PRIMARY CLINICAL RECORDS. [employer] provides no warranty or guarantee of the accuracy or completeness of information in this document.
[2025-05-04 11:09] LABS: HOMOCYSTEINE 9.5 umol/L (0.0-14.5)
[2025-05-05 04:07] LABS: PROGESTERONE 0.1 ng/mL (.)
[2025-05-08 12:08] LABS: Testosterone, % Free 1.34 % (0.50-2.80); Testosterone, Free <.04 ng/dL (0.10-0.85)
== END | disposition home or self-care (01) ==
PROVIDERS: Referring Provider Nurse Practitioner Family; Visit Provider Nurse Practitioner Family
DX: E61.7 Deficiency of multiple nutrient elements (principal); M06.849 Other specified rheumatoid arthritis, unspecified hand; R53.82 Chronic fatigue, unspecified; G89.4 Chronic pain syndrome; M81.8 Other osteoporosis without current pathological fracture; F41.9 Anxiety disorder, unspecified; I10 Essential (primary) hypertension; A69.20 Lyme disease, unspecified; B60.09 Other babesiosis; E28.9 Ovarian dysfunction, unspecified; A44.0 Systemic bartonellosis
CPT/HCPCS: 80053; 80061; 82306; 82533; 82627; 82670; 83090; 83525; 83695; 84144; 84402; 84403; 85025; 82626